=== PATIENT | female | born 2000 | race Caucasian/White ===

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

== ENCOUNTER 2023-03-08 10:50 | Emergency (ER) | payer MEDICAID, SELFPAY ==
--- NOTE | 2023-03-08 | ECG_ITS ---
Test Reason : sob Blood Pressure : / mmHG Vent. Rate : 097 BPM Atrial Rate : 097 BPM P-R Int : 130 ms QRS Dur : 068 ms QT Int : 320 ms P-R-T Axes : 080 074 050 degrees QTc Int : 406 ms Normal sinus rhythm Low voltage QRS Nonspecific T wave abnormality Abnormal ECG No previous ECGs available Referred By: Generic ED Physician Electronically Signed By:FABIAN LUCIO
--- NOTE | ~2023-03-08 | XR_ITS ---
EXAMINATION: XR CHEST CLINICAL INFORMATION: Shortness of breath. COMPARISON: Chest radiograph dated 10/30/2015. TECHNIQUE: Frontal view of the chest was obtained. FINDINGS: The lungs are clear. The cardiomediastinal silhouette is normal in size. There is no pleural effusion or pneumothorax. No acute osseous abnormality. XR/XR chest 1V IMPRESSION: No acute cardiopulmonary findings.
[2023-03-08 10:50] VITALS: BP 125/79; PULSE 98; RESP 20; TEMP 36.6; O2SAT 98; BMI 26.4
[2023-03-08 11:10] LABS: MANUAL DIFF FLAG NO
[2023-03-08 11:11] LABS: Basophils Percent Auto 0.5 % (0-2); Eosinophils Absolute Auto 0.2 X10*3/uL (0.0-0.4); Eosinophils Percent Auto 2.1 % (0-4); Hematocrit 40.3 % (37.0-47.0); Hemoglobin 13.2 g/dl (12.0-16.0); Imm Gran Abs Auto 0.04 X10*3/uL (0.00-0.03); Imm Gran Pct Auto 0.5 % (0.0-0.4); Lymphocytes Percent Auto 11.8 % (20-40); Mean Corpuscular HGB Conc 32.8 g/dl (31.0-35.0); Mean Corpuscular Hemoglobin 28.6 pg (27.0-33.0); Mean Corpuscular Volume 87.4 fL (80.0-98.0); Mean Platelet Volume 10.5 fL (9.4-12.3); Monocytes Absolute Auto 0.6 X10*3/uL (0.1-1.2); Monocytes Percent Auto 6.8 % (2-11); Neutrophils Absolute Auto 6.4 x10*3/uL (2.0-8.3); Neutrophils Percent Auto 78.3 % (45-73); Platelet Count 176 X10*3/uL (160-400); Red Blood Count 4.61 X10*6/uL (4.20-5.50); Red Cell Distribution Width 12.1 % (11.0-16.0); White Blood Count 8.1 X10*3/uL (4.8-10.8)
--- NOTE | 2023-03-08 11:18 | ED_ITS ---
HPI - SOB/Dyspnea General Chief Complaint: Dyspnea Stated Complaint: SOB Time Seen by Provider: 03/08/23 11:05 Source: patient Mode of arrival: ambulatory Limitations: no limitations History of Present Illness HPI Narrative: 22-year-old female came in for evaluation of shortness of breath. Started since yesterday and progressively getting worse, brother was sick with upper respiratory symptoms, patient started to have runny nose, subjective fever, productive cough, SOB. No history of DVTs/PE, no lower extremity swelling or tenderness. Related Data Previous Rx's Medication Instructions Recorded hyoscyamine sulfate 0.125 mg tablet 0.125 mg PO QID PRN dyspepsia #10 03/29/21 tabs loperamide 2 mg tablet 2 mg PO Q6H PRN loose stool #14 03/29/21 tabs albuterol sulfate 2.5 mg/3 mL 2.5 mg (3 mL) inhalation QID PRN 03/08/23 (0.083 %) solution for nebulization bronchospasm #75 mL azithromycin 250 mg tablet See Rx Instructions PO .COMPLEX #6 03/08/23 (Zithromax Z-Roberto) tabs prednisone 20 mg tablet 20 mg PO BID #10 tabs 03/08/23 Allergies Allergy/AdvReac Type Severity Reaction Status Date / Time ibuprofen [From MOTRIN] Allergy Unknown SHORTNESS Verified 03/08/23 10:52 OF BREATH, ANXIETY Review of Systems Review of Systems: All other systems are reviewed and are negative Constitutional: Reports as per HPI and Reports no additional constitutional complaints Eyes: Reports as per HPI and Reports no additional eye complaints Reports system reviewed and no additional complaints, except as documented Cardiovascular: Reports as per HPI and Reports no additional cardiovascular complaints Respiratory: Reports as per HPI and Reports no additional respiratory complaints Gastrointestinal: Reports as per HPI and Reports no additional gastrointestinal complaints Genitourinary: Reports no additional female genitourinary complaints Musculoskeletal: Reports no additional musculoskeletal complaints Skin/Breast: Reports system reviewed and no additional complaints, except as docu Psychiatric: Reports no additional psychiatric complaints Endocrine: Reports no additional endocrine complaints Hematologic/Lymphatic: Reports no additional hematologic/lymphatic complaints Allergic/Immunologic: Reports no additional allergic/immunologic complaints Reports system reviewed and no additional complaints, except as documented and Reports Abnormal speech present [facility] Social History Social History Smoked in Last 30 Days: No Use of substances other than those prescribed or required for medical reasons: No Advance Directives: No Advance Directives Information Provided: Yes Physical Exam Vital Signs: Vital Signs: Last Vital Signs Temp 98.0 F 03/08/23 11:24 Pulse 99 03/08/23 11:43 Resp 18 03/08/23 11:43 BP 121/77 03/08/23 11:24 Pulse Ox 97 03/08/23 11:24 O2 Del Method Room Air 03/08/23 11:24 BMI result Body Mass Index 26.4 Vital signs have been reviewed as appeared to be correct. Blood pressure normal. Heart rate normal. Respiration rate normal. Temperature normal. Oxygen saturation normal. Appearance: Alert. Oriented X3. No acute distress. Head: Normal external exam. Normocephalic. Atraumatic. No Salomon signs noted. No raccoon eyes noted Eyes: PERRLA. EOMI. Conjunctiva and sclera normal. Eyelids normal. ENT: TM's Normal. Pharynx normal. Uvula midline. Moist mucous membranes. No trismus noted. No drooling noted. No muffled voice noted. Neck: Normal inspection. Neck supple. FROM. No adenopathy. Thyroid Normal. No meningeal signs. No neck mass noted. CVS: Normal heart rate and rhythm. Heart sound normal. No murmurs noted. Pulses normal throughout. Respiratory: No respiratory distress. Painless inspiration. Breath sounds normal. Prolonged expiration with diffuse mild expiratory wheezes. Chest nontender. No accessory muscle usage noted or decreased air movement noted. Abdomen: Soft and nontender. Bowel sounds normal in all 4 quadrants. No disten tion noted. No organomegaly noted. No visible injury noted. Back: No CVA tenderness. Full range of motion noted. Skin: Skin warm and dry. Normal skin color. Normal skin turgor. No rashes/lesions/lacerations noted. Extremities: No lower extremity edema. Extremities exhibit normal range of mo tion. Extremities nontender. Neuro: Oriented X 3. Cranial nerve exam: II-XII are grossly intact No motor deficit. No sensory deficit. Reflexes normal. Course Course Course Narrative: 22-year-old female came in for evaluation of shortness of breath, physical exam is consistent with acute bronchitis. Will start the patient on Z- Roberto/prednisone/bronchodilator. Medications Administered Discontinued Medications Generic Name Dose Route Start Last Admin Trade Name Harish PRN Reason Stop Dose Admin Albuterol Sulfate 5 mg 03/08/23 11:14 03/08/23 11:41 Albuterol Sulfate (0.083%) 2.5 Mg/3 Ml Vial.Neb INHALE 03/08/23 11:15 5 mg ONCE ONE Administration Albuterol/Ipratropium 3 ml 03/08/23 11:14 03/08/23 11:41 Albuterol/Iprat 2.5/0.5mg 3 Ml Ampul.Neb INHALE 03/08/23 11:15 3 ml ONCE ONE Administration Prednisone 40 mg 03/08/23 11:14 03/08/23 11:23 Prednisone 20 Mg Tablet PO 03/08/23 11:15 40 mg ONCE ONE Administration Medical Decision Making Differential Diagnosis Differential Diagnoses: The differential diagnosis associated with the presentation includes (Bacterial pneumonia, viral pneumonia, bronchitis, COPD exacerbation, severe anemia.) Lab Data MDM Lab Attestation statement: I reviewed the patient's lab results. 03/08/23 11:05 03/08/23 11:05 Labs: Lab Results 03/08/23 03/08/23 03/08/23 Range/Units 11:05 11:05 11:23 WBC 8.1 (4.8-10.8) X10*3/uL RBC 4.61 (4.20-5.50) X10*6/uL Hgb 13.2 (12.0-16.0) g/dl Hct 40.3 (37.0-47.0) % MCV 87.4 (80.0-98.0) fL MCH 28.6 (27.0-33.0) pg MCHC 32.8 (31.0-35.0) g/dl RDW 12.1 (11.0-16.0) % Plt Count 176 (160-400) X10*3/uL MPV 10.5 (9.4-12.3) fL Immature Gran % (Auto) 0.5 H (0.0-0.4) % Neut % (Auto) 78.3 H (45-73) % Lymph % (Auto) 11.8 L (20-40) % [place] % (Auto) 6.8 (2-11) % Eos % (Auto) 2.1 (0-4) % Baso % (Auto) 0.5 (0-2) % Lymph # (Auto) 1.0 L (1.2-4.9) X10*3/uL [place] # (Auto) 0.6 (0.1-1.2) X10*3/uL Eos # (Auto) 0.2 (0.0-0.4) X10*3/uL Baso # (Auto) 0.0 (0.0-0.2) X10*3/uL Abs Immat Gran (auto) 0.04 H (0.00-0.03) X10*3/uL Absolute Neuts (auto) 6.4 (2.0-8.3) x10*3/uL Absolute Nucleated RBC 0.000 (0.0-0.012) X10*3/uL Nucleated RBC % (auto) 0.0 (0.0-0.2) /100WBC Sodium 139 (135-145) mmol/L Potassium 4.2 (3.3-5.1) mmol/L Chloride 110 H (96-108) mmol/L Carbon Dioxide 21 L (22-29) mmol/L Anion Gap 12 (12-20) BUN 7 L (9-16) mg/dL Creatinine 0.67 (0.5-1.4) mg/dL Estim Creat Clear Calc 114.3 Estimated GFR > 60 Random Glucose 138 H (60-115) mg/dL Calcium 8.4 D (8.4-10.2) mg/dL Total Bilirubin 1.3 H (0.0-1.0) mg/dL AST 14 (5-31) U/L ALT 10 (0-31) U/L Alkaline Phosphatase 67 (39-117) U/L Total Protein 6.6 (6.5-8.0) g/dL Albumin 4.0 (3.5-5.0) g/dL Influenza Type A (PCR) NEGATIVE (Negative) Influenza Type B (PCR) NEGATIVE (Negative) RSV RNA Qual (PCR) NEGATIVE (Negative) SARS-CoV-2 RNA (RT-PCR) NEGATIVE (Negative) Independent Interpretation I performed an independent interpretation of an: Plain X-Ray (No acute intrathoracic pathology for) Radiology Impression Discussion of test interpretation with radiology: I have reviewed the radiologist's reading. Discharge Plan Discharge Clinical Impression: Acute bronchitis Patient Disposition: Home, Self-Care Instructions: Acute Bronchitis (ED) Prescriptions: New prednisone 20 mg tablet 20 mg PO BID Qty: 10 0RF albuterol sulfate 2.5 mg /3 mL (0.083 %) solution for nebulization 2.5 mg inhalation QID PRN (Reason: bronchospasm) Qty: 75 0RF azithromycin [Zithromax Z-Roberto] 250 mg tablet See Rx Instructions .ROUTE .COMPLEX Qty: 6 0RF Rx Instructions: For 250 mg dose pack: take 500 mg today (day 1), then 250 mg for 4 days (days 2-5) No Action loperamide 2 mg tablet 2 mg PO Q6H PRN (Reason: loose stool) Qty: 14 0RF hyoscyamine sulfate 0.125 mg tablet 0.125 mg PO QID PRN (Reason: dyspepsia) Qty: 10 0RF Stand Alone Forms: Work/School Release
[2023-03-08] MEDS: predniSONE 20 MG TABLET 40 MG PO (11:23)
[2023-03-08 11:24] VITALS: BP 121/77; PULSE 96; RESP 24; TEMP 36.7; O2SAT 97
[2023-03-08 11:33] LABS: Alanine Aminotransferase 10 U/L (0-31); Alkaline Phosphatase 67 U/L (39-117); Anion Gap 12 (12-20); Aspartate Amino Transferase 14 U/L (5-31); Bilirubin Total 1.3 mg/dL (0.0-1.0); Blood Urea Nitrogen 7 mg/dL (9-16); Calcium 8.4 mg/dL (8.4-10.2); Carbon Dioxide 21 mmol/L (22-29); Chloride 110 mmol/L (96-108); Creatinine Clr Calc Pharmacy 114.3; Estimated Glomerular Filt Rate > 60; Glucose Random 138 mg/dL (60-115); Potassium 4.2 mmol/L (3.3-5.1); Sodium 139 mmol/L (135-145); Total Protein 6.6 g/dL (6.5-8.0)
[2023-03-08] MEDS: Albuterol Sulfate (0.083%) 2.5 MG/3 ML VIAL.NEB 5 MG INHALE (11:41)
[2023-03-08] MEDS: Albuterol/Iprat 2.5/0.5MG 3 ML AMPUL.NEB INHALE (11:41)
[2023-03-08 11:43] VITALS: PULSE 99; RESP 18; O2SAT 96
[2023-03-08 12:10] LABS: Influenza A PCR NEGATIVE (Negative); Influenza B PCR NEGATIVE (Negative); Resp Syncy Virus RNA Qual PCR NEGATIVE (Negative); SARS COV2 PCR INHOUSE NEGATIVE (Negative)
== END 2023-03-08 13:12 | disposition home or self-care (01) ==
PROVIDERS: Emergency Provider Emergency Medicine
DX: J40 Bronchitis, not specified as acute or chronic (principal); R06.02 Shortness of breath; Z20.822 Contact with and (suspected) exposure to COVID-19; Z20.828 Contact with and (suspected) exposure to other viral communicable diseases; Z79.899 Other long term (current) drug therapy
CPT/HCPCS: 0241U; 36415; 71045; 80053; 85025; 93005; 94640; 99284; 99285

== ENCOUNTER 2023-06-20 17:32 | Inpatient (IN) | payer MEDICAID, SELFPAY ==
--- NOTE | ~2023-06-20 | CT_ITS ---
EXAMINATION: CT ABDOMEN AND PELVIS WITH CONTRAST CLINICAL INFORMATION: Right lower quadrant abdominal pain, rule out appendicitis COMPARISON: None available. TECHNIQUE: Multidetector volumetric images were obtained from the superior aspect of the liver through the pubic symphysis following administration 85 mL of Omnipaque 350 intravenous contrast. Sagittal and coronal reformatted images were obtained on the technologist's workstation. Oral contrast: No This CT examination was performed using dose optimization techniques as appropriate, variously including the following: *Automated exposure control *Adjustment of mA and/or kV according to patient size (this includes techniques or standardized protocols for targeted exams where dose is matched to indication/reason for exam; i.e. extremities or head) *Use of iterative reconstruction technique DLP: 448 mGy-cm FINDINGS: LUNG BASES: Dependent bibasilar atelectasis. LIVER, GALLBLADDER, AND BILIARY TREE: The liver is normal in size, shape, and attenuation. No focal hepatic lesion or biliary ductal dilatation is present. The gallbladder is unremarkable with no evidence of radiopaque gallstones, gallbladder wall thickening, or obvious pericholecystic inflammatory changes. PANCREAS: Unremarkable. SPLEEN: Unremarkable. ADRENAL GLANDS: Unremarkable. KIDNEYS AND URETERS: Bilateral nephrograms are symmetric. No hydronephrosis or obstructing calculus identified. BLADDER: Unremarkable. GASTROINTESTINAL TRACT: No evidence of bowel obstruction or significant wall thickening. The appendix is fluid-filled and slightly dilated to 0.7 cm. There is mural enhancement of the appendix and minimal adjacent stranding, raising concern for mild/early findings of acute appendicitis in the setting of right lower quadrant pain. Trace fluid noted in the pelvis. No free air is seen. ABDOMINAL WALL: No significant hernia is appreciated. LYMPH NODES: Normal. VASCULAR: Unremarkable. PELVIC VISCERA: Unremarkable. OSSEOUS STRUCTURES: Unremarkable. CT/CT abdomen pelvis w IV con IMPRESSION: Slightly dilated, fluid-filled appendix with mural enhancement and minimal adjacent stranding, concerning for mild/early findings of acute appendicitis in the setting of right lower quadrant pain.
[2023-06-20 17:43] VITALS: BP 116/74; PULSE 103; RESP 16; TEMP 36.3; O2SAT 98; BMI 27.4
--- NOTE | 2023-06-20 17:43 | ED_ITS ---
HPI - General Adult General Chief complaint: Abdominal Pain Stated complaint: abd pain Time Seen by Provider: 06/20/23 18:42 Source: patient and family Mode of arrival: ambulatory Limitations: no limitations History of Present Illness HPI narrative: This is a 23-year-old female who has no known medical history who presents to the ER with complaints of a generalized abdominal pain and nausea today with waking. No vomiting, diarrhea, constipation, urinary symptoms, fevers or chills. Last menstrual cycle was 1 month ago. Patient has a Nexplanon. Related Data Previous Rx's Medication Instructions Recorded hyoscyamine sulfate 0.125 mg tablet 0.125 mg PO QID PRN dyspepsia #10 03/29/21 tabs loperamide 2 mg tablet 2 mg PO Q6H PRN loose stool #14 03/29/21 tabs albuterol sulfate 2.5 mg/3 mL 2.5 mg (3 mL) inhalation QID PRN 03/08/23 (0.083 %) solution for nebulization bronchospasm #75 mL azithromycin 250 mg tablet See Rx Instructions PO .COMPLEX #6 03/08/23 (Zithromax Z-Roberto) tabs prednisone 20 mg tablet 20 mg PO BID #10 tabs 03/08/23 Allergies Allergy/AdvReac Type Severity Reaction Status Date / Time ibuprofen [From MOTRIN] Allergy Unknown SHORTNESS Verified 06/20/23 17:47 OF BREATH, ANXIETY Review of Systems Review of Systems: Yes all other systems are reviewed and are negative Constitutional: Constitutional: Reports no additional constitutional complaints, Denies body ache(s), Denies chills, Denies fever(s), Denies headache(s) and Denies weakness Eyes: Eyes: Reports no additional eye complaints and Denies change in vision ENT: Reports system reviewed and no additional complaints, except as documented, Denies dizziness, Denies headache(s), Denies nasal congestion, Denies nasal discharge and Denies neck pain Cardiovascular: Cardiovascular: Reports no additional cardiovascular complaints, Denies chest pain, Denies leg edema and Denies dyspnea Respiratory: Respiratory: Reports no additional respiratory complaints, Denies cough and Denies dyspnea Gastrointestinal: Gastrointestinal: Reports no additional gastrointestinal complaints, Reports abdominal pain, Denies diarrhea, Reports nausea and Denies vomiting Genitourinary: Genitourinary: Reports no additional female genitourinary complaints and Denies urinary incontinence Musculoskeletal: Musculoskeletal: Reports no additional musculoskeletal complaints, Denies back pain, Denies arthralgias, Denies joint swelling, Denies neck pain, Denies numbness and Denies tingling Integumentary/Breasts: Skin/Breast: Reports system reviewed and no additional complaints, except as docu and Denies rash Neurologic: Reports system reviewed and no additional complaints, except as documented, Denies dizziness, Denies headache(s), Denies numbness, Denies tingling and Denies weakness PMF Past Medical History Attestation statement: The following information was validated with the patient. Source: old records reviewed and nursing notes reviewed Social History Social History Alcohol intake: never Smoked in Last 30 Days: No Use of substances other than those prescribed or required for medical reasons: No Advance Directives: No Advance Directives Information Provided: No Patient : No Physical Exam ED Vital Signs: Vital Signs - 24 hr 06/20/23 17:43 06/20/23 19:05 Temperature 97.4 F 98.9 F Pulse Rate 103 H 101 H Respiratory Rate 16 16 Blood Pressure 116/74 116/63 Pulse Oximetry 98 99 Oxygen Delivery Method Room Air Room Air BMI result Body Mass Index 27.4 Const General: cooperative, healthy appearing, comfortable and no acute distress Orientation/consciousness: patient oriented x3 Limitations: no limitations HENMT Head: Yes normal to inspection Ears: hearing grossly normal bilaterally Eyes General: appearance normal, both eyes and all related structures Pupils: Equal, round and reactive pupils present Neck Neck: Yes normal visual inspection, Yes full ROM and Yes no lymphadenopathy Chest Chest palpation & inspection: normal inspection of the chest Resp Effort & Inspection: normal respiratory effort Auscultation: clear to auscultation bilaterally Cardio Rate: regular rate Rhythm: regular rhythm Peripheral pulses: Peripheral pulses 2+ throughout GI Inspection: Yes normal to inspection Palpation (GI): Soft to palpation, Tenderness to palpation present (GI) in the RLQ; with no rebound tenderness and no guarding Auscultation: normal bowel sounds Back/Spine/Pelvis Thoracic/Lumbar Spine: thoracic and lumbar spine normal to inspection Skin General skin exam: no rashes or lesions noted Neuro General: patient oriented x3 and moves all extremities Cranial nerves: Yes Equal, round and reactive pupils present Cognition (Neuro): normal cognition Gait exam (Neuro): Normal gait present Extrem General: Yes normal to inspection, Yes no pedal edema and Yes no calf tenderness Course Course Course Narrative: This is a rapid medical exam: Additional HPI, ROS, PE not included below will be deferred to primary provider. Patient is a 23-year-old female presenting to the emergency department with generalized abdominal pain and nausea since this morning. Denies vomiting, diarrhea, constipation. Denies urinary symptoms. Reports mild back pain. Abdomen soft, mildly tender to palpation throughout, no guarding or rebound tenderness, no CVA tenderness. Took Tums around 5pm without change. Plan: UA, labs Reevaluation(s) Reevaluation #1: 8960- CT is consistent with appendicitis. At this time infection suspected. Blood cultures and lactic acid ordered. Antibiotics ordered. Call out to surgeon to discuss. Medications Administered Discontinued Medications Generic Name Dose Route Start Last Admin Trade Name Freq PRN Reason Stop Dose Admin Iohexol 100 ml 06/20/23 19:49 06/20/23 19:50 Iohexol 350 Mg/Ml 100 Ml Infus..Btl IV 06/20/23 19:50 85 ml ONCE ONE Administration Morphine Sulfate 4 mg 06/20/23 18:48 06/20/23 19:13 Morphine Sulfate 4 Mg/Ml Cartridge IVPUSH 06/20/23 18:49 4 mg ONCE ONE Administration Protocol Ondansetron HCl 4 mg 06/20/23 18:48 06/20/23 19:12 Ondansetron Hcl 4 Mg/2 Ml Vial IVPUSH 06/20/23 18:49 4 mg ONCE ONE Administration Medical Decision Making Medical Decision Making [facility] Narrative: 23-year-old female here with complaints of abdominal pain and nausea with waking today. Took Tums prior to arrival with no relief. No reports of diarrhea, constipation, vomiting, fevers, chills, urinary symptoms. On exam patient has tenderness over the right lower quadrant with no rebound or guarding. Will check labs, UA, CT Differential Diagnosis Differential Diagnoses: The differential diagnosis associated with the presentation includes appendicitis, ectopic , ovarian torsion, gastroenteritis Admission/Observation Consideration of admission/observation: Escalation of care including adm ission/observation considered CT consistent with appendicitis needing surgery consult and admission Consult Healthcare Provider Management of the patient was discussed with: Application Coordinator I spoke to Dr. St who accepted admission of patient Lab Data [facility] Lab Attestation statement: I reviewed the patient's lab results. 06/20/23 17:56 06/20/23 17:56 Labs: Lab Results 06/20/23 06/20/23 06/20/23 Range/Units 17:56 17:56 17:56 WBC 9.7 (4.8-10.8) X10*3/uL RBC 4.46 (4.20-5.50) X10*6/uL Hgb 12.9 (12.0-16.0) g/dl Hct 39.0 (37.0-47.0) % MCV 87.4 (80.0-98.0) fL MCH 28.9 (27.0-33.0) pg MCHC 33.1 (31.0-35.0) g/dl RDW 12.2 (11.0-16.0) % Plt Count 183 (160-400) X10*3/uL MPV 10.3 (9.4-12.3) fL Immature Gran % (Auto) 0.6 H (0.0-0.4) % Neut % (Auto) 73.5 H (45-73) % Lymph % (Auto) 18.0 L (20-40) % [place] % (Auto) 6.5 (2-11) % Eos % (Auto) 1.1 (0-4) % Baso % (Auto) 0.3 (0-2) % Lymph # (Auto) 1.8 (1.2-4.9) X10*3/uL [place] # (Auto) 0.6 (0.1-1.2) X10*3/uL Eos # (Auto) 0.1 (0.0-0.4) X10*3/uL Baso # (Auto) 0.0 (0.0-0.2) X10*3/uL Abs Immat Gran (auto) 0.06 H (0.00-0.03) X10*3/uL Absolute Neuts (auto) 7.1 (2.0-8.3) x10*3/uL Absolute Nucleated RBC 0.000 (0.0-0.012) X10*3/uL Nucleated RBC % (auto) 0.0 (0.0-0.2) /100WBC Sodium 138 (135-145) mmol/L Potassium 3.4 (3.3-5.1) mmol/L Chloride 105 (96-108) mmol/L Carbon Dioxide 23 (22-29) mmol/L Anion Gap 13 (12-20) BUN 10 (9-16) mg/dL Creatinine 0.62 (0.5-1.4) mg/dL Estim Creat Clear Calc 124.5 Estimated GFR > 60 Random Glucose 119 H (60-115) mg/dL Calcium 9.6 D (8.4-10.2) mg/dL Total Bilirubin 2.0 H (0.0-1.0) mg/dL AST 15 (5-31) U/L ALT 11 (0-31) U/L Alkaline Phosphatase 65 (39-117) U/L Total Protein 7.3 (6.5-8.0) g/dL Albumin 4.1 (3.5-5.0) g/dL Lipase 26 (8-78) U/L Urine Color Yellow Urine Appearance Clear Urine pH 7.0 (5.0-9.0) Ur Specific [place] 1.015 (1.005-1.025) Urine Protein Negative (Neg-Trace) mg/dL Urine Glucose (UA) Negative (Negative) mg/dL Urine Ketones Negative (Negative) mg/dL Urine Blood Negative (Negative) Urine Nitrite Negative (Negative) Ur Leukocyte Esterase Negative (Negative) Urine Test (NEGATIVE) 06/20/23 Range/Units 17:56 WBC (4.8-10.8) X10*3/uL RBC (4.20-5.50) X10*6/uL Hgb (12.0-16.0) g/dl Hct (37.0-47.0) % MCV (80.0-98.0) fL MCH (27.0-33.0) pg MCHC (31.0-35.0) g/dl RDW (11.0-16.0) % Plt Count (160-400) X10*3/uL MPV (9.4-12.3) fL Immature Gran % (Auto) (0.0-0.4) % Neut % (Auto) (45-73) % Lymph % (Auto) (20-40) % [place] % (Auto) (2-11) % Eos % (Auto) (0-4) % Baso % (Auto) (0-2) % Lymph # (Auto) (1.2-4.9) X10*3/uL [place] # (Auto) (0.1-1.2) X10*3/uL Eos # (Auto) (0.0-0.4) X10*3/uL Baso # (Auto) (0.0-0.2) X10*3/uL Abs Immat Gran (auto) (0.00-0.03) X10*3/uL Absolute Neuts (auto) (2.0-8.3) x10*3/uL Absolute Nucleated RBC (0.0-0.012) X10*3/uL Nucleated RBC % (auto) (0.0-0.2) /100WBC Sodium (135-145) mmol/L Potassium (3.3-5.1) mmol/L Chloride (96-108) mmol/L Carbon Dioxide (22-29) mmol/L Anion Gap (12-20) BUN (9-16) mg/dL Creatinine (0.5-1.4) mg/dL Estim Creat Clear Calc Estimated GFR Random Glucose (60-115) mg/dL Calcium (8.4-10.2) mg/dL Total Bilirubin (0.0-1.0) mg/dL AST (5-31) U/L ALT (0-31) U/L Alkaline Phosphatase (39-117) U/L Total Protein (6.5-8.0) g/dL Albumin (3.5-5.0) g/dL Lipase (8-78) U/L Urine Color Urine Appearance Urine pH (5.0-9.0) Ur Specific [place] (1.005-1.025) Urine Protein (Neg-Trace) mg/dL Urine Glucose (UA) (Negative) mg/dL Urine Ketones (Negative) mg/dL Urine Blood (Negative) Urine Nitrite (Negative) Ur Leukocyte Esterase (Negative) Urine Test NEGATIVE (NEGATIVE) Independent Interpretation I performed an independent interpretation of an: CT Scan Interpretation: I independently reviewed the CT scan and agree with the rad report Radiology Impression Discussion of test interpretation with radiology: I have reviewed the radiologist's reading. Radiologist Impression: [address] [address] [address] Scan Report Signed Patient: Hailey Garcia MR#: [id number] : 2000 Acct:[id number] Age/Sex: 23 / F ADM Date: 06/20/23 Loc: HO.ED Attending Dr: Ordering Physician: Carolyn English NP Date of Service: 06/20/23 Procedure(s): CT abdomen pelvis w IV con Accession Number(s): [id number] cc: Carolyn English NP~ EXAMINATION: CT ABDOMEN AND PELVIS WITH CONTRAST? CLINICAL INFORMATION: Right lower quadrant abdominal pain, rule out appendicitis? COMPARISON: None available. TECHNIQUE: Multidetector volumetric images were obtained from the superior aspect of the liver through the pubic symphysis following administration 85 mL of Omnipaque 350 intravenous contrast. Sagittal and coronal reformatted images were obtained on the technologist's workstation.? Oral contrast: No This CT examination was performed using dose optimization techniques as appropriate, variously including the following: *Automated exposure control *Adjustment of mA and/or kV according to patient size (this includes techniques or standardized protocols for targeted exams where dose is matched to indication/reason for exam; i.e. extremities or head) *Use of iterative reconstruction technique DLP: 448 mGy-cm FINDINGS: LUNG BASES: Dependent bibasilar atelectasis.? LIVER, GALLBLADDER, AND BILIARY TREE: The liver is normal in size, shape, and attenuation. No focal hepatic lesion or biliary ductal dilatation is present. The gallbladder is unremarkable with no evidence of radiopaque gallstones, gallbladder wall thickening, or obvious pericholecystic inflammatory changes. PANCREAS: Unremarkable. SPLEEN: Unremarkable. ADRENAL GLANDS: Unremarkable. KIDNEYS AND URETERS: Bilateral nephrograms are symmetric. No hydronephrosis or obstructing calculus identified. BLADDER: Unremarkable. GASTROINTESTINAL TRACT: No evidence of bowel obstruction or significant wall thickening. The appendix is fluid-filled and slightly dilated to 0.7 cm. There is mural enhancement of the appendix and minimal adjacent stranding, raising concern for mild/early findings of acute appendicitis in the setting of right lower quadrant pain. Trace fluid noted in the pelvis. No free air is seen. ABDOMINAL WALL: No significant hernia is appreciated.? LYMPH NODES: Normal. VASCULAR: Unremarkable. PELVIC VISCERA: Unremarkable.? OSSEOUS STRUCTURES: Unremarkable.? CT/CT abdomen pelvis w IV con IMPRESSION: Slightly dilated, fluid-filled appendix with mural enhancement and minimal adjacent stranding, concerning for mild/early findings of acute appendicitis in the setting of right lower quadrant pain. ? Critical Care Time Critical Care Time Critical Care Time: Yes Total Critical Care Time: 45 Attestation: discussed him with surgeon for admission for appendicitis Discharge Plan Discharge Clinical Impression: Acute appendicitis Patient Disposition: Admitted As Inpatient Prescriptions: No Action loperamide 2 mg tablet 2 mg PO Q6H PRN (Reason: loose stool) Qty: 14 0RF hyoscyamine sulfate 0.125 mg tablet 0.125 mg PO QID PRN (Reason: dyspepsia) Qty: 10 0RF prednisone 20 mg tablet 20 mg PO BID Qty: 10 0RF albuterol sulfate 2.5 mg /3 mL (0.083 %) solution for nebulization 2.5 mg inhalation QID PRN (Reason: bronchospasm) Qty: 75 0RF azithromycin [Zithromax Z-Roberto] 250 mg tablet See Rx Instructions .ROUTE .COMPLEX Qty: 6 0RF Rx Instructions: For 250 mg dose pack: take 500 mg today (day 1), then 250 mg for 4 days (days 2-5)
[2023-06-20 18:02] LABS: MANUAL DIFF FLAG NO
[2023-06-20 18:04] LABS: Appearance Urine Clear; Color Urine Yellow; Glucose Urine UA Negative (Negative); Leukocyte Esterase Urine Negative (Negative); Nitrite Urine Negative (Negative); Specific Gravity - Urine 1.015 (1.005-1.025); Urine Blood Negative (Negative); Urine Ketones Negative (Negative); Urine Protein Negative (Neg-Trace)
[2023-06-20 18:10] LABS: Basophils Percent Auto 0.3 % (0-2); Eosinophils Absolute Auto 0.1 X10*3/uL (0.0-0.4); Eosinophils Percent Auto 1.1 % (0-4); Hemoglobin 12.9 g/dl (12.0-16.0); Imm Gran Abs Auto 0.06 X10*3/uL (0.00-0.03); Imm Gran Pct Auto 0.6 % (0.0-0.4); Lymphocytes Absolute Auto 1.8 X10*3/uL (1.2-4.9); Mean Corpuscular HGB Conc 33.1 g/dl (31.0-35.0); Mean Corpuscular Hemoglobin 28.9 pg (27.0-33.0); Mean Corpuscular Volume 87.4 fL (80.0-98.0); Mean Platelet Volume 10.3 fL (9.4-12.3); Monocytes Absolute Auto 0.6 X10*3/uL (0.1-1.2); Monocytes Percent Auto 6.5 % (2-11); Neutrophils Absolute Auto 7.1 x10*3/uL (2.0-8.3); Neutrophils Percent Auto 73.5 % (45-73); Platelet Count 183 X10*3/uL (160-400); Red Blood Count 4.46 X10*6/uL (4.20-5.50); Red Cell Distribution Width 12.2 % (11.0-16.0); White Blood Count 9.7 X10*3/uL (4.8-10.8)
[2023-06-20 18:29] LABS: Alanine Aminotransferase 11 U/L (0-31); Albumin Level 4.1 g/dL (3.5-5.0); Alkaline Phosphatase 65 U/L (39-117); Anion Gap 13 (12-20); Aspartate Amino Transferase 15 U/L (5-31); Blood Urea Nitrogen 10 mg/dL (9-16); Calcium 9.6 mg/dL (8.4-10.2); Carbon Dioxide 23 mmol/L (22-29); Chloride 105 mmol/L (96-108); Creatinine Clr Calc Pharmacy 124.5; Estimated Glomerular Filt Rate > 60; Glucose Random 119 mg/dL (60-115); Lipase 26 U/L (8-78); Potassium 3.4 mmol/L (3.3-5.1); Sodium 138 mmol/L (135-145); Total Protein 7.3 g/dL (6.5-8.0)
[2023-06-20 19:05] VITALS: BP 116/63; PULSE 101; RESP 16; TEMP 37.2; O2SAT 99
[2023-06-20] MEDS: ondansetron HCL 4 MG/2 ML VIAL IVPUSH (19:12)
[2023-06-20] MEDS: Morphine Sulfate 4 MG/ML CARTRIDGE IVPUSH (19:13)
[2023-06-20 19:30] LABS: UPreg QC Valid YES; Urine Pregnancy NEGATIVE (NEGATIVE)
--- NOTE | 2023-06-20 19:47 | PC.NURSE ---
Pt in CT
[2023-06-20] MEDS: iohexoL 350 MG/ML 100 ML INFUS..BTL IV (19:50)
[2023-06-20] MEDS: HYDROmorphone HCl 1 MG/ML SYRINGE 0.5 MG IVPUSH (23:21)
[2023-06-20] MEDS: 0.9 % Sodium Chloride Flush 3 ML SYRINGE IVFLUSH (23:22)
[2023-06-20] MEDS: Piperacillin Sodium/Tazobactam 4.5 GM in 0.9 % Sodium Chloride 100 ML IV (23:22)
[2023-06-20] MEDS: Dextrose 5 % and 0.45 % NaCl 1,000 ML 100 ML IVCONT (23:22)
[2023-06-21] VITALS (10 sets, daily range): BP systolic 110–141; BP diastolic 56–84; PULSE 85–107; RESP 16–19; TEMP 36.1–36.9; O2SAT 95–99
[2023-06-21] MEDS: ondansetron HCL 4 MG/2 ML VIAL IVPUSH (03:01)
--- NOTE | 2023-06-21 07:22 | PHA.MEDREC ---
Pharmacy Consult ? Medication Reconciliation Pharmacy has reviewed the medication reconciliation done by RN.
[2023-06-21] MEDS: Dextrose 5 % and 0.45 % NaCl 1,000 ML 100 ML IVCONT (08:26)
--- NOTE | 2023-06-21 09:28 | MHC.CM.PN ---
Addendum entered by Kenyetta Morales 06/21/23 14:11: PT WILL DC HOME TODAY, NO SERVICES ORDERED Original Note: PT REPORTS SHE LIVES WITH HER S/O WHO IS AT BEDSIDE SHE SAYS SHE IS INDEPENDENT WITH CARE AND DENIES USING DME OR SERVICES OF ANY KIND PT REPORTS SHE GOES TO [facility] FOR PRIMARY CARE, BUT IS UNSURE OF HER PROVIDERS NAME SHE DOES NOT HAVE A HCP AND DECLINES TO COMPLETE ONE TODAY, INFO AND DOCUMENT WERE PROVIDED DCP: HOME NO SERVICES VIA PRIVATE TRANSPORT
--- NOTE | 2023-06-21 11:59 | HO.ANESPROP2 ---
HPI - Anesthesia Eval Consult details Narrative: Acute appendicitis PMFSH Active Problems Active Problems: All Active Problems (Updated 06/20/23 @ 22:48 by Carolyn Wan NP) Acute appendicitis (Acute) Family History Family history of problems with anesthesia: No Surgical History History of Problems with Anesthesia: No Social History Social History Household Members: Significant Other and Family Housing: House Do you presently have visiting nurse or other home services: No Alcohol intake: never Patient Tobacco Use Status: Never used Tobacco Smoked in Last 30 Days: No Use of substances other than those prescribed or required for medical reasons: No Currently Displaying Signs/Symptoms of Drug Intoxication Withdrawal: No Have you been hit, kicked, punched, or otherwise hurt by someone within the past year? If so, by whom?: No Do you feel safe in your current relationship?: Yes Is there a partner from a previous relationship who is making you feel unsafe now?: No Are you made to feel afraid or neglected: No Advance Directives: No Advance Directives Information Provided: No Do you have thoughts of harming others: None Do you have a plan to hurt others: No Plan Recently lost weight without trying: No Eating poorly because of decreased appetite: No Nutrition Risks: No Nutritional Risk Patient : No : No Poor oral hygiene: No service: No Meds Allergies Allergy/AdvReac Type Severity Reaction Status Date / Time ibuprofen [From MOTRIN] Allergy Unknown SHORTNESS Verified 06/20/23 17:47 OF BREATH, ANXIETY Active Medications: Current Medications Acetaminophen (Acetaminophen 325 Mg Tablet) 650 mg PO Q6H PRN PRN Reason: Pain, Mild (Pain Scale 1-3) Hydromorphone HCl (Hydromorphone Hcl 1 Mg/Ml Syringe) 0.5 mg IVPUSH Q4H PRN; Protocol PRN Reason: Pain, Severe (Pain Scale 7-10) Last Admin: 06/20/23 23:21 Dose: 0.5 mg Dextrose/Sodium Chloride (D51/2ns) 1,000 mls @ 100 mls/hr IVCONT .Q10H FABY Last Admin: 06/21/23 08:26 Dose: 100 mls/hr Ondansetron HCl (Ondansetron Hcl 4 Mg/2 Ml Vial) 4 mg IVPUSH Q8H PRN PRN Reason: Nausea and Vomiting Last Admin: 06/21/23 03:01 Dose: 4 mg Pharmacy Consult (Consult Rx Perform Med Rec) 1 each MISCELLANE ONCE PRN PRN Reason: Consult order Sodium Chloride (0.9 % Sodium Chloride Flush 3 Ml Syringe) 3 ml IVFLUSH QSHIFT FABY Last Admin: 06/21/23 08:23 Dose: Not Given Zolpidem Tartrate (Zolpidem Tartrate 5 Mg Tablet) 5 mg PO BEDTIME PRN PRN Reason: Insomnia Exam Exam Date and Time: June 21, 2023 1159 Height,Weight and Vital Signs: Height 5 ft 1 in Weight 65.771 kg Last Vital Signs Temp 97.1 F 06/21/23 07:27 Pulse 88 06/21/23 07:27 Resp 18 06/21/23 07:27 BP 110/56 L 06/21/23 07:27 Pulse Ox 97 06/21/23 07:27 O2 Del Method Room Air 06/21/23 07:27 Pertinent Lab Results Pertinent Lab Results: Laboratory Tests 06/20/23 06/20/23 06/20/23 17:56 17:56 17:56 WBC 9.7 RBC 4.46 Hgb 12.9 Hct 39.0 MCV 87.4 MCH 28.9 MCHC 33.1 RDW 12.2 Plt Count 183 MPV 10.3 Immature Gran % (Auto) 0.6 H Neut % (Auto) 73.5 H Lymph % (Auto) 18.0 L [place] % (Auto) 6.5 Eos % (Auto) 1.1 Baso % (Auto) 0.3 Lymph # (Auto) 1.8 [place] # (Auto) 0.6 Eos # (Auto) 0.1 Baso # (Auto) 0.0 Abs Immat Gran (auto) 0.06 H Absolute Neuts (auto) 7.1 Absolute Nucleated RBC 0.000 Nucleated RBC % (auto) 0.0 Sodium 138 Potassium 3.4 Chloride 105 Carbon Dioxide 23 Anion Gap 13 BUN 10 Creatinine 0.62 Estim Creat Clear Calc 124.5 Estimated GFR > 60 Random Glucose 119 H Lactic Acid Calcium 9.6 D Total Bilirubin 2.0 H AST 15 ALT 11 Alkaline Phosphatase 65 Total Protein 7.3 Albumin 4.1 Lipase 26 Urine Color Yellow Urine Appearance Clear Urine pH 7.0 Ur Specific [place] 1.015 Urine Protein Negative Urine Glucose (UA) Negative Urine Ketones Negative Urine Blood Negative Urine Nitrite Negative Ur Leukocyte Esterase Negative Urine Test 06/20/23 06/20/23 17:56 23:27 WBC RBC Hgb Hct MCV MCH MCHC RDW Plt Count MPV Immature Gran % (Auto) Neut % (Auto) Lymph % (Auto) [place] % (Auto) Eos % (Auto) Baso % (Auto) Lymph # (Auto) [place] # (Auto) Eos # (Auto) Baso # (Auto) Abs Immat Gran (auto) Absolute Neuts (auto) Absolute Nucleated RBC Nucleated RBC % (auto) Sodium Potassium Chloride Carbon Dioxide Anion Gap BUN Creatinine Estim Creat Clear Calc Estimated GFR Random Glucose Lactic Acid 1.0 Calcium Total Bilirubin AST ALT Alkaline Phosphatase Total Protein Albumin Lipase Urine Color Urine Appearance Urine pH Ur Specific [place] Urine Protein Urine Glucose (UA) Urine Ketones Urine Blood Urine Nitrite Ur Leukocyte Esterase Urine Test NEGATIVE Airway Mallampati Class: I TM Dist: >3cm Neck ROM: Full Loose/Missing/Broken Teeth: No Heart: RRR Lungs: CTA Assessment and Plan Assessment Anesthesia Assessment: Anesthesia Plan Discussed and Chart Reviewed Final Anesthetic Review Family History of Problems with Anesthesia: No History of Problems with Anesthesia: No NPO: Yes ASA Class: I and Emergency Final Preanesthetic Review: No Changes in Pt Med Stat, Meds/Allgs Chart Reviewed, Consent Obtained/Reviewed and Anes Risks/Benef Reviewed Patient Risk: Low Procedure Risk: Intermediate Anesthetic Plan Anesthetic Plan: GA Disposition: Standard PACU
--- NOTE | 2023-06-21 12:33 | P.HPGS_ITS ---
History of Present Illness History of Present Illness Date of Service: 06/21/23 Chief complaint: abdominal pain Narrative: Hailey Garcia is a 23 year old female who presents with approximate 1 day history of right lower quadrant pain of increasing severity. Because of progression of symptoms, patient presents emergency department for further evaluation. She has never had symptoms before. Very healthy patient otherwise. Chart was reviewed and patient evaluated. CT scan consistent with early appendicitis. [facility] Social History Social History Household Members: Significant Other and Family Housing: House Do you presently have visiting nurse or other home services: No Alcohol intake: never Patient Tobacco Use Status: Never used Tobacco Smoked in Last 30 Days: No Use of substances other than those prescribed or required for medical reasons: No Currently Displaying Signs/Symptoms of Drug Intoxication Withdrawal: No Have you been hit, kicked, punched, or otherwise hurt by someone within the past year? If so, by whom?: No Do you feel safe in your current relationship?: Yes Is there a partner from a previous relationship who is making you feel unsafe now?: No Are you made to feel afraid or neglected: No Advance Directives: No Advance Directives Information Provided: No Do you have thoughts of harming others: None Do you have a plan to hurt others: No Plan Recently lost weight without trying: No Eating poorly because of decreased appetite: No Nutrition Risks: No Nutritional Risk Patient : No : No Poor oral hygiene: No service: No Meds Allergies Allergy/AdvReac Type Severity Reaction Status Date / Time ibuprofen [From MOTRIN] Allergy Unknown SHORTNESS Verified 06/20/23 17:47 OF BREATH, ANXIETY Active Medications: Current Medications Acetaminophen (Acetaminophen 325 Mg Tablet) 650 mg PO Q6H PRN PRN Reason: Pain, Mild (Pain Scale 1-3) Albuterol Sulfate (Albuterol Sulfate (0.083%) 2.5 Mg/3 Ml Vial.Neb) 2.5 mg INHALE ONCE PRN PRN Reason: Wheezing Fentanyl (Fentanyl Citrate/Pf 100 Mcg/2 Ml Vial) 50 mcg IVPUSH Q5M PRN; Protocol PRN Reason: Pain, Severe (Pain Scale 7-10) Hydromorphone HCl (Hydromorphone Hcl 1 Mg/Ml Syringe) 0.5 mg IVPUSH Q4H PRN; Protocol PRN Reason: Pain, Severe (Pain Scale 7-10) Last Admin: 06/20/23 23:21 Dose: 0.5 mg Hydromorphone HCl (Hydromorphone Hcl 0.5 Mg/0.5 Ml Syringe) 0.5 mg IVPUSH Q5M PRN; Protocol PRN Reason: Pain, Severe (Pain Scale 7-10) Dextrose/Sodium Chloride (D51/2ns) 1,000 mls @ 100 mls/hr IVCONT .Q10H [facility] Last Admin: 06/21/23 08:26 Dose: 100 mls/hr Promethazine HCl 12.5 mg/ (Sodium Chloride) 50.5 mls @ 202 mls/hr IV ONCE PRN PRN Reason: Nausea and Vomiting Ondansetron HCl (Ondansetron Hcl 4 Mg/2 Ml Vial) 4 mg IVPUSH Q8H PRN PRN Reason: Nausea and Vomiting Last Admin: 06/21/23 03:01 Dose: 4 mg Ondansetron HCl (Ondansetron Hcl 4 Mg/2 Ml Vial) 4 mg IVPUSH ONCE PRN PRN Reason: Nausea and Vomiting Pharmacy Consult (Consult Rx Perform Med Rec) 1 each MISCELLANE ONCE PRN PRN Reason: Consult order Sodium Chloride (0.9 % Sodium Chloride Flush 3 Ml Syringe) 3 ml IVFLUSH QSHIFT [facility] Last Admin: 06/21/23 08:23 Dose: Not Given Zolpidem Tartrate (Zolpidem Tartrate 5 Mg Tablet) 5 mg PO BEDTIME PRN PRN Reason: Insomnia Physical Exam Vital Signs: Vital Signs: Last Vital Signs Temp 97.1 F 06/21/23 07:27 Pulse 88 06/21/23 07:27 Resp 18 06/21/23 07:27 BP 110/56 L 06/21/23 07:27 Pulse Ox 97 06/21/23 07:27 O2 Del Method Room Air 06/21/23 07:27 BMI result Body Mass Index 27.4 Chest: Other: Chest breath sounds bilaterally, HS 1 in 2 GI: Other: Localized right lower quadrant tenderness. Abdomen otherwise soft. Results Results Labs: Short CBC 06/20/23 Range/Units 17:56 WBC 9.7 (4.8-10.8) X10*3/uL Hgb 12.9 (12.0-16.0) g/dl Hct 39.0 (37.0-47.0) % Plt Count 183 (160-400) X10*3/uL BMP 06/20/23 17:56 Sodium 138 Potassium 3.4 Chloride 105 Carbon Dioxide 23 BUN 10 Creatinine 0.62 Calcium 9.6 D Liver Function 06/20/23 Range/Units 17:56 Total Bilirubin 2.0 H (0.0-1.0) mg/dL AST 15 (5-31) U/L ALT 11 (0-31) U/L Alkaline Phosphatase 65 (39-117) U/L Albumin 4.1 (3.5-5.0) g/dL Urine 06/20/23 06/20/23 Range/Units 17:56 17:56 Urine Color Yellow Urine Appearance Clear Urine pH 7.0 (5.0-9.0) Ur Specific [place] 1.015 (1.005-1.025) Urine Protein Negative (Neg-Trace) mg/dL Urine Glucose (UA) Negative (Negative) mg/dL Urine Test NEGATIVE (NEGATIVE) Assessment and Plan (1) Acute appendicitis: Status: Acute Plan Risks, benefits, alternatives of laparoscopic possible open appendectomy were reviewed with the patient and included but not limited to bleeding, infection, numbness, pain, scarring, bowel or bladder injury or leak and the patient wishes to proceed. All questions were answered. Arrangements were made for this for today. Time Spent With Patient Time: Total time managing care of this patient today ____ minutes. Quality Stroke Does the patient have a stroke diagnosis?: No VTE Prior VTE?: No VTE Risk Level:: Surgical - low VTE Device Contraindication: Treatment Not Indicated VTE Drug Contraindication: Treatment Not Indicated Procedures Date of Service Date of Service: 06/21/23
--- NOTE | 2023-06-21 13:34 | P.OP_ITS ---
Operative Note Operative Note Date of Service: 06/21/23 Narrative: Preoperative diagnosis: [] Acute appendicitis Postop diagnosis: [] Same Procedure [] laparoscopic appendectomy Surgeon: [] [employer]iel Electrical [employer] Technologist: [] Type of Anesthesia: [] MAC Indication for surgery: [] Edematous inflamed appendix. No gross evidence of perforation. Findings: [] Patient brought to the operating room, placed on operative table in supine position, after adequate level of general anesthesia was induced, and under sterile technique a Saxena catheter placed, the patient's abdomen was prepped and draped in usual sterile fashion. Using a supraumbilical curvilinear incision, Kemp technique was used to insufflate the abdominal cavity to 15 mm of CO2. Lower midline and suprapubic ports were placed under direct laparoscopic view, and the patient placed in Trendelenburg position, and tilted to the left. Findings were as noted above. The appendix was grasped and brought onto the field. It's mesentery was sequentially taken down with double firing of ligature device. Appendix then transected the cecal base using endoscopic JENNY stapler. Specimen was placed in an Endo-Catch bag, and retrieved through the umbilical port. Abdominal cavity was copiously irrigated, and secured hemostasis. All ports were removed under direct laparoscopic view. Wounds were closed in the following manner; umbilical wound had its fascia reapproximated using interrupted 0 Vicryl sutures. Skin wounds were closed using subcuticular 4-0 Vicryl sutures followed by Steri-Strips and sterile dressings. Wounds were infiltrated 0.5% Marcaine at completion. Sponge, needle, instrument counts reported to be correct. Patient tolerated the procedure well and emerged anesthesia stable condition. EBL minimal
[2023-06-21] MEDS: Acetaminophen 1,000 MG/100 ML PIGGYBACK 400 MG IV (13:45)
[2023-06-21] MEDS: HYDROmorphone HCl 1 MG/ML SYRINGE 0.5 MG IVPUSH (14:38)
[2023-06-21] MEDS: Metoclopramide HCl 10 MG/2 ML VIAL IVPUSH (15:31)
--- NOTE | 2023-06-22 08:55 | P.DS_ITS ---
DS: Providers Provider Date of Service: 06/21/23 Date of admission: 06/20/23 22:43 Primary care physician: [facility] DS: Diagnosis Discharge Diagnosis (1) Acute appendicitis: Start date: 06/20/23 Status: Acute DS: Summary Hospital Course Hospital Course: Patient is a 23-year-old female presented here with progressive worsening right lower quadrant pain. Exam was most noteworthy for right lower quadrant tenderne ss. Workup including CT scan demonstrated findings consistent with early appendicitis. This all happened on 06/20/2023. Patient was admitted, placed NPO with IV hydration IV antibiotics. On 06/21/2023, patient underwent uneventful laparoscopic appendectomy. For specific intraoperative findings, please refer to operative note. Patient's postoperative course unremarkable. Patient is stable. She is tolerating a diet. Patient is ambulating with minimal assistance. Abdomen soft. Wound clean dry and intact. Status at Discharge Overall status at discharge: patient is back to baseline Time Spent with Patient Time attestation: Total time managing care of this patient today ____ minutes. Discharge coordination time: Less than 30 minutes Quality: Safe Use of Opioids Does Pt have an Active Cancer Diagnosis on the Problem List?: No Quality: Stroke Does the patient have a stroke diagnosis?: No Physical Exam Vital Signs: Vital Signs: Last Vital Signs Temp 97 F 06/21/23 15:13 Pulse 88 06/21/23 15:13 Resp 18 06/21/23 15:13 BP 120/65 06/21/23 15:13 Pulse Ox 98 06/21/23 15:13 O2 Del Method Room Air 06/21/23 15:13 O2 Flow Rate 6 06/21/23 13:43 BMI result Body Mass Index 27.4 GI: Other: Abdomen soft. Wound clean dry and intact. DS: Data Data Completed and Pending Completed studies during hospitalization [Text1]: Procedures Resection of Appendix, Percutaneous Endoscopic Approach (06/20/23) Pending studies at discharge: Pending at discharge 06/21/23 13:43 Surgical [PTH] Routine Labs on day of discharge: Preliminary micro results at discharge 06/20/23 23:21 Blood Culture - Preliminary Blood - Venous No growth after 24 hours. 06/20/23 23:21 Blood Culture - Preliminary Blood - Venous No growth after 24 hours. Discharge Plan Discharge Anticipated Discharge Date/Time: 06/21/23 18:38 Patient Disposition: Home, Self-Care Discharge Diagnosis: Acute appendicitis Referrals: [place] [Primary Care Provider] - 1 Week Discharge Medications: New hydrocodone-acetaminophen 5-325 mg tablet 1 tab PO Q4-6H PRN (Reason: pain) Qty: 30 0RF Rx Instructions: Partial Fill upon patient request. Discontinued albuterol sulfate 2.5 mg /3 mL (0.083 %) solution for nebulization 2.5 mg inhalation QID PRN (Reason: bronchospasm) Qty: 75 0RF Discharge Orders: Discharge Order (Routine); Ordered 06/21/23 Ordered By: Praneeth St Diet: Advance to usual diet Activity on Discharge: No heavy lifting Stand Alone Forms: Patient Portal Discharge page Activity Restrictions/Additional Instructions: Ice to wound 20 minutes several times today and tomorrow. May shower in 2 days. Remove outside dressing only. Leave Steri-Strips intact. No strenuous activities Care Plan Goals: [facility] Concerns: None Plan of Treatment: For discharge instructions Assessment: Stable Discharge Date/Time: 06/21/23 16:28
== END 2023-06-21 16:28 | disposition home or self-care (01) | DRG 234 ==
LOC: HO.ED 22:48 → HO.EDOVER 22:50 → HO.S3 23:22
PROVIDERS: Nurse Practitioner Family; Registered Nurse Emergency; Admitting Provider Surgery; Emergency Provider Emergency Medicine Emergency Medical Services; Visit Provider Surgery
PROC: 0DTJ4ZZ Resection of Appendix, Percutaneous Endoscopic Approach (ICD-10-PCS; CPT 44970; principal; 2023-06-21 12:00)
DX: K35.80 Unspecified acute appendicitis (principal)
CPT/HCPCS: 44970; 36415; 74177; 80053; 81003; 81025; 83605; 83690; 85025; 87040; 88304; 99284; J0131; J1100; J1170; J2250; J2270; J2405; J2543; J2765; J2795; J3010; Q9967

== ENCOUNTER → 2023-06-20 22:43 | Outpatient (BNV) | payer MEDICAID, SELFPAY | PROVIDERS: Admitting Provider Surgery; Emergency Provider Emergency Medicine Emergency Medical Services; Visit Provider Surgery | DX: K35.80 Unspecified acute appendicitis (principal) | CPT/HCPCS: 44970; 99024; 99223 ==

== ENCOUNTER 2023-06-30 10:05 | Outpatient (AMB) | payer MEDICAID, SELFPAY ==
--- NOTE | 2023-06-30 10:14 | MHC.OFFVIS ---
Intake Vital Signs 06/30/23 10:18 Height 5 ft 1 in Weight 141 lb 4 oz BMI 26.7 BP 117/67 Blood Pressure Location Lt brachial Position Sitting Pulse 80 Intake Visit Reasons: S/P appendectomy Intake Note: Patient is seen in office for post op assessment post appendectomy. Patient c/o: denies any concerns, healing as expected. 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 She is doing well. She has time diet. She is having normal bowel habits. She is slowly but steadily increasing her activity level. She has minimal incisional discomfort. [facility] Surgical History History of appendectomy (06/21/23) Social History Household Members: Significant Other and Family Housing: House Do you presently have visiting nurse or other home services: No Alcohol intake: never Patient Tobacco Use Status: Never used Tobacco service: No Physical Exam Vital Signs: Last Vital Signs Pulse 80 06/30/23 10:18 BP 117/67 06/30/23 10:18 BMI result Body Mass Index 26.7 GI Other: Abdomen soft. All wounds clean dry and intact. Assessment & Plan Assessment & Plan (1) Status post appendectomy: Code(s): Z90.49 - Acquired absence of other specified parts of digestive tract Plan Patient has been given local instructions. She will be given note for work started on the 13 of July. Two weeks light duty when she recommenced his employment. Patient will otherwise follow-up p.r.n. pain Coding Level of Care Code Global (58600) Diagnoses Status post appendectomy Z90.49
[2023-06-30 10:18] VITALS: BP 117/67; PULSE 80; BMI 26.7
== END 2023-06-30 10:36 | disposition home or self-care (01) ==
PROVIDERS: Visit Provider Surgery
DX: Z90.49 Acquired absence of other specified parts of digestive tract (principal)
CPT/HCPCS: 99024

== ENCOUNTER → 2023-06-30 10:05 | Outpatient (BNVA) | payer MEDICAID, SELFPAY | PROVIDERS: Visit Provider Surgery ==

== ENCOUNTER 2023-07-08 04:13 | Emergency (ER) | payer MEDICAID, SELFPAY ==
--- NOTE | ~2023-07-08 | CT_ITS ---
EXAMINATION: CT ABDOMEN AND PELVIS WITH CONTRAST CLINICAL INFORMATION: Periumbilical pain status post appendectomy on 06/22/2023. COMPARISON: CT scan of the abdomen and pelvis dated 06/20/2023 TECHNIQUE: Multidetector volumetric images were obtained from the superior aspect of the liver through the pubic symphysis following administration 85 mL of Omnipaque 350 intravenous contrast. Sagittal and coronal reformatted images were obtained on the technologist's workstation. Oral contrast: No This CT examination was performed using dose optimization techniques as appropriate, variously including the following: *Automated exposure control *Adjustment of mA and/or kV according to patient size (this includes techniques or standardized protocols for targeted exams where dose is matched to indication/reason for exam; i.e. extremities or head) *Use of iterative reconstruction technique DLP: 469 mGy-cm FINDINGS: LUNG BASES: The visualized lung bases are unremarkable. LIVER, GALLBLADDER, AND BILIARY TREE: Unremarkable. PANCREAS: Unremarkable. SPLEEN: Unremarkable. ADRENAL GLANDS: Unremarkable. KIDNEYS AND URETERS: The kidneys are normal in size, shape, and attenuation. No hydronephrosis, hydroureter, or calculi seen. No perinephric stranding. BLADDER: Unremarkable. GASTROINTESTINAL TRACT: The stomach and small bowel are unremarkable. Surgical clips are seen at the base of the cecum without surrounding abnormality. The base of the cecum is unremarkable. Trace fluid in the right lower quadrant. The colon and rectum are unremarkable. ABDOMINAL WALL: No significant hernia is appreciated. LYMPH NODES: No lymphadenopathy. VASCULAR: Unremarkable. PELVIC VISCERA: Trace free fluid in the cul-de-sac. OSSEOUS STRUCTURES: Unremarkable. CT/CT abdomen pelvis w IV con IMPRESSION: 1. Post surgical changes status post appendectomy without significant associated abnormality. Trace right lower quadrant is likely residual postsurgical. Fluid in the pelvis could be postsurgical as well or physiologic. No other significant abnormality.
[2023-07-08 04:16] VITALS: BP 122/72; PULSE 101; RESP 18; TEMP 36.6; O2SAT 98; BMI 26.8
[2023-07-08 04:34] LABS: Appearance Urine Turbid; Color Urine Yellow; Glucose Urine UA Negative (Negative); Leukocyte Esterase Urine Negative (Negative); Nitrite Urine Negative (Negative); PH 8.5 (5.0-9.0); Urine Blood Negative (Negative); Urine Ketones 40 mg/dL (Negative); Urine Protein Negative (Neg-Trace)
--- NOTE | 2023-07-08 04:43 | PC.NURSE ---
Assumed care of pt. Pt sitting on stretcher, intermittently tearful, endorsing mid-abdominal pain. Labs obtained IV started.Pending provider evaluation.
[2023-07-08 04:45] LABS: MANUAL DIFF FLAG NO
[2023-07-08 04:46] LABS: Basophils Percent Auto 0.4 % (0-2); Eosinophils Absolute Auto 0.1 X10*3/uL (0.0-0.4); Eosinophils Percent Auto 0.9 % (0-4); Hematocrit 39.6 % (37.0-47.0); Hemoglobin 13.4 g/dl (12.0-16.0); Imm Gran Abs Auto 0.05 X10*3/uL (0.00-0.03); Imm Gran Pct Auto 0.6 % (0.0-0.4); Lymphocytes Percent Auto 25.5 % (20-40); Mean Corpuscular HGB Conc 33.8 g/dl (31.0-35.0); Mean Corpuscular Hemoglobin 28.9 pg (27.0-33.0); Mean Corpuscular Volume 85.3 fL (80.0-98.0); Mean Platelet Volume 10.1 fL (9.4-12.3); Monocytes Absolute Auto 0.4 X10*3/uL (0.1-1.2); Monocytes Percent Auto 5.6 % (2-11); Neutrophils Absolute Auto 5.2 x10*3/uL (2.0-8.3); Platelet Count 241 X10*3/uL (160-400); Red Blood Count 4.64 X10*6/uL (4.20-5.50); Red Cell Distribution Width 11.9 % (11.0-16.0); White Blood Count 7.8 X10*3/uL (4.8-10.8)
[2023-07-08 05:03] LABS: Alanine Aminotransferase 11 U/L (0-31); Albumin Level 4.3 g/dL (3.5-5.0); Alkaline Phosphatase 62 U/L (39-117); Anion Gap 15 (12-20); Aspartate Amino Transferase 15 U/L (5-31); Bilirubin Direct 0.4 mg/dL (0.0-0.5); Bilirubin Total 1.5 mg/dL (0.0-1.0); Blood Urea Nitrogen 10 mg/dL (9-16); Calcium 9.8 mg/dL (8.4-10.2); Carbon Dioxide 22 mmol/L (22-29); Chloride 104 mmol/L (96-108); Creatinine Clr Calc Pharmacy 99.3; Estimated Glomerular Filt Rate > 60; Glucose Random 127 mg/dL (60-115); Lipase 18 U/L (8-78); Potassium 3.1 mmol/L (3.3-5.1); Sodium 138 mmol/L (135-145); Total Protein 7.7 g/dL (6.5-8.0)
--- NOTE | 2023-07-08 07:02 | ED_ITS ---
HPI - Abdominal Pain General Chief Complaint: Abdominal Pain Stated Complaint: Abdominal pain Time Seen by Provider: 07/08/23 06:57 Source: patient Mode of arrival: ambulatory Limitations: no limitations History of Present Illness HPI narrative: 23 yo female with no sig PMH other than recent lap appendectomy on 06/[address] says she did really well until last night after eating Tostadas now with epigastric pain and nausea. Had a normal BM. no vomiting. She tried motrin, pepto bismol and vicodin without relief. She states this is the first time this has happened since surgery. She is in a lot of pain right now. She has never had gallstones, pancreatitis or gastritis before. MD elicited complaint: abdominal pain Pertinent past history: other (lap appy 06/22) Onset (ago): hour(s) (10pm) Pain Consistency: constant Location: epigastric and periumbilical Severity: severe Quality: stabbing Radiation: none Migration to: no migration Exacerbating factors: eating Relieving factors: nothing Context: recent surgery/procedure Associated symptoms: nausea Related Data Previous Rx's Medication Instructions Recorded hydrocodone 5 mg-acetaminophen 325 1 tab PO Q4-6H PRN pain #30 tabs 06/21/23 mg tablet famotidine 20 mg tablet (Pepcid) 20 mg PO BID #60 tabs 07/08/23 ondansetron 4 mg disintegrating 4 mg PO Q8H PRN nausea and 07/08/23 tablet vomiting #20 tabs Allergies Allergy/AdvReac Type Severity Reaction Status Date / Time ibuprofen [From MOTRIN] Allergy Unknown SHORTNESS Verified 06/30/23 10:14 OF BREATH, ANXIETY Review of Systems Review of Systems Constitutional : No Weight loss, No Fever, No Chills Cardiovascular : No Chest Pain, No SOB, NoEdema Respiratory : No Cough, No Sputum, No Wheezing Gastrointestinal : Positive Nausea, no Vomiting, no Diarrhea, positive abdominal Pain, No Hematochezia, No Melena Genitourinary : No Dysuria, No Urinary Frequency, No Hematuria, No Urgency Musculoskeletal : No joint pain, No Myalgias, No Joint Swelling Skin : No Skin Lesions, No rash Neuro : No Weakness, No Numbness, No Dizziness, No Headache Psych : No Anxiety/Panic, No Depression All other systems reviewed and are negative. ON LICENSE OF [facility] Past Medical History Attestation statement: The following information was validated with the patient. Surgical History History of appendectomy (06/21/23) Social History Social History Household Members: Significant Other and Family Housing: House Do you presently have visiting nurse or other home services: No Alcohol intake: never Patient Tobacco Use Status: Never used Tobacco Smoked in Last 30 Days: No Use of substances other than those prescribed or required for medical reasons: No Advance Directives: No Advance Directives Information Provided: Yes Patient : No service: No Physical Exam ED Vital Signs: Vital Signs - 24 hr 07/08/23 04:16 07/08/23 07:06 07/08/23 07:28 Temperature 97.9 F 98.2 F Pulse Rate 101 H 98 109 H Respiratory Rate 18 18 Blood Pressure 122/72 137/68 123/71 Pulse Oximetry 98 100 98 Oxygen Delivery Method Room Air Room Air Room Air 07/08/23 08:14 Temperature Pulse Rate 88 Respiratory Rate 19 Blood Pressure 122/71 Pulse Oximetry 97 Oxygen Delivery Method BMI result Body Mass Index 26.8 Appearance: Alert. Oriented X3. No acute distress. anxious and tearful Eyes: Pupils equal, round and reactive to light. ENT: Pharynx normal. Neck: Normal inspection. Neck supple. CVS: Normal heart rate and rhythm. Pulses normal. Respiratory: No respiratory distress. Breath sounds normal. Abdomen: Soft and moderate epigastric ttp but no distention and no rebound Skin: Skin warm and dry. Normal skin color. Normal skin turgor. Extremities: No lower extremity edema. No calf ttp Neuro: Oriented X 3. No motor deficit. No sensory deficit. Course Course Course Narrative: feels much better after IV morphine, tolerating PO, stable for DC Medical Decision Making Medical Decision Making MDM Narrative: 23 yo female with PMH of recent lap appendectomy here with c/o epigastric pain + nausea had BM and is passing flatus. Her incisions look well healed she has done great post op and her pain started in upper abdomen after eating Tostadas. At this time could be gastritis, pancreatitis, biliary colic. At this time labs, IV morphine for pain, CT scan for pancreatitis, biliary colic, perforated ulcer ordered though low on differential. Differential Diagnosis Differential Diagnoses: The differential diagnosis associated with the presentation includes gastritis, biliary colic, SBO, pancreatitis Admission/Observation Consideration of admission/observation: Escalation of care including admission/observation considered tolerating PO, pain resolved with morphine, CT scan and labs reassuring can be managed at home Lab Data MDM Lab Attestation statement: I reviewed the patient's lab results. 07/08/23 04:36 07/08/23 04:36 Labs: Lab Results 07/08/23 07/08/23 07/08/23 Range/Units 04:36 04:36 Unknown WBC 7.8 (4.8-10.8) X10*3/uL RBC 4.64 (4.20-5.50) X10*6/uL Hgb 13.4 (12.0-16.0) g/dl Hct 39.6 (37.0-47.0) % MCV 85.3 (80.0-98.0) fL MCH 28.9 (27.0-33.0) pg MCHC 33.8 (31.0-35.0) g/dl RDW 11.9 (11.0-16.0) % Plt Count 241 D (160-400) X10*3/uL MPV 10.1 (9.4-12.3) fL Immature Gran % (Auto) 0.6 H (0.0-0.4) % Neut % (Auto) 67.0 (45-73) % Lymph % (Auto) 25.5 (20-40) % [place] % (Auto) 5.6 (2-11) % Eos % (Auto) 0.9 (0-4) % Baso % (Auto) 0.4 (0-2) % Lymph # (Auto) 2.0 (1.2-4.9) X10*3/uL [place] # (Auto) 0.4 (0.1-1.2) X10*3/uL Eos # (Auto) 0.1 (0.0-0.4) X10*3/uL Baso # (Auto) 0.0 (0.0-0.2) X10*3/uL Abs Immat Gran (auto) 0.05 H (0.00-0.03) X10*3/uL Absolute Neuts (auto) 5.2 (2.0-8.3) x10*3/uL Absolute Nucleated RBC 0.000 (0.0-0.012) X10*3/uL Nucleated RBC % (auto) 0.0 (0.0-0.2) /100WBC Sodium 138 (135-145) mmol/L Potassium 3.1 L (3.3-5.1) mmol/L Chloride 104 (96-108) mmol/L Carbon Dioxide 22 (22-29) mmol/L Anion Gap 15 (12-20) BUN 10 (9-16) mg/dL Creatinine 0.77 (0.5-1.4) mg/dL Estim Creat Clear Calc 99.3 Estimated GFR > 60 Random Glucose 127 H (60-115) mg/dL Calcium 9.8 (8.4-10.2) mg/dL Total Bilirubin 1.5 H (0.0-1.0) mg/dL Direct Bilirubin 0.4 (0.0-0.5) mg/dL AST 15 (5-31) U/L ALT 11 (0-31) U/L Alkaline Phosphatase 62 (39-117) U/L Total Protein 7.7 (6.5-8.0) g/dL Albumin 4.3 (3.5-5.0) g/dL Lipase 18 (8-78) U/L Urine Color Yellow Urine Appearance Turbid Urine pH 8.5 (5.0-9.0) Ur Specific [place] 1.020 (1.005-1.025) Urine Protein Negative (Neg-Trace) mg/dL Urine Glucose (UA) Negative (Negative) mg/dL Urine Ketones 40 (Negative) mg/dL Urine Blood Negative (Negative) Urine Nitrite Negative (Negative) Ur Leukocyte Esterase Negative (Negative) Urine Test (NEGATIVE) 07/08/23 Range/Units Unknown WBC (4.8-10.8) X10*3/uL RBC (4.20-5.50) X10*6/uL Hgb (12.0-16.0) g/dl Hct (37.0-47.0) % MCV (80.0-98.0) fL MCH (27.0-33.0) pg MCHC (31.0-35.0) g/dl RDW (11.0-16.0) % Plt Count (160-400) X10*3/uL MPV (9.4-12.3) fL Immature Gran % (Auto) (0.0-0.4) % Neut % (Auto) (45-73) % Lymph % (Auto) (20-40) % [place] % (Auto) (2-11) % Eos % (Auto) (0-4) % Baso % (Auto) (0-2) % Lymph # (Auto) (1.2-4.9) X10*3/uL [place] # (Auto) (0.1-1.2) X10*3/uL Eos # (Auto) (0.0-0.4) X10*3/uL Baso # (Auto) (0.0-0.2) X10*3/uL Abs Immat Gran (auto) (0.00-0.03) X10*3/uL Absolute Neuts (auto) (2.0-8.3) x10*3/uL Absolute Nucleated RBC (0.0-0.012) X10*3/uL Nucleated RBC % (auto) (0.0-0.2) /100WBC Sodium (135-145) mmol/L Potassium (3.3-5.1) mmol/L Chloride (96-108) mmol/L Carbon Dioxide (22-29) mmol/L Anion Gap (12-20) BUN (9-16) mg/dL Creatinine (0.5-1.4) mg/dL Estim Creat Clear Calc Estimated GFR Random Glucose (60-115) mg/dL Calcium (8.4-10.2) mg/dL Total Bilirubin (0.0-1.0) mg/dL Direct Bilirubin (0.0-0.5) mg/dL AST (5-31) U/L ALT (0-31) U/L Alkaline Phosphatase (39-117) U/L Total Protein (6.5-8.0) g/dL Albumin (3.5-5.0) g/dL Lipase (8-78) U/L Urine Color Urine Appearance Urine pH (5.0-9.0) Ur Specific [place] (1.005-1.025) Urine Protein (Neg-Trace) mg/dL Urine Glucose (UA) (Negative) mg/dL Urine Ketones (Negative) mg/dL Urine Blood (Negative) Urine Nitrite (Negative) Ur Leukocyte Esterase (Negative) Urine Test NEGATIVE (NEGATIVE) Independent Interpretation I performed an independent interpretation of an: CT Scan (no abscess or per foration) Radiology Impression Discussion of test interpretation with radiology: I have reviewed the radiologist's reading. Independent Historian Clinical information obtained from an independent historian. History obtained from or confirmed by: Spouse External Record Review External record reviewed: Inpatient record Prescription Management I considered prescription management with: Other (pepcid and zofran) Medications Administered Discontinued Medications Generic Name Dose Route Start Last Admin Trade Name Freq PRN Reason Stop Dose Admin Lactated Ringer's 1,000 mls @ 999 mls/hr 07/08/23 07:15 07/08/23 07:25 Lr IV 07/08/23 08:15 999 mls/hr .Q1H1M FABY Administration Iohexol 85 ml 07/08/23 08:24 07/08/23 08:24 Iohexol 350 Mg/Ml 100 Ml Infus..Btl IV 07/08/23 08:25 85 ml ONCE ONE Administration Morphine Sulfate 4 mg 07/08/23 07:13 07/08/23 07:26 Morphine Sulfate 4 Mg/Ml Cartridge IVPUSH 07/08/23 07:14 4 mg ONCE ONE Administration Protocol Ondansetron HCl 4 mg 07/08/23 07:13 07/08/23 07:26 Ondansetron Hcl 4 Mg/2 Ml Vial IVPUSH 07/08/23 07:14 4 mg ONCE ONE Administration Potassium Chloride 40 meq 07/08/23 07:24 07/08/23 09:09 Potassium Chloride Packet 20 Meq Packet PO 07/08/23 07:25 40 meq ONCE ONE Administration Discharge Plan Discharge Clinical Impression: Acute hypokalemia Gastritis Qualifiers: Gastritis type: unspecified gastritis Chronicity: acute Gastritis bleeding: without bleeding Qualified Code(s): K29.00 - Acute gastritis without bleeding Abdominal pain Qualifiers: Abdominal location: epigastric Qualified Code(s): R10.13 - Epigastric pain Patient Disposition: Home, Self-Care Instructions: Gastritis (ED), Hypokalemia (ED), Abdominal Pain (ED) Additional Instructions: bland diet for 48 hours no spicy, greasy or fatty foods then advance slowly. take pepcid twice a day for 1 week then daily for 1 week then as needed for symptoms avoid motrin return for fevers, vomiting, bloody stools, worsening pain - you might have a black stool after pepto bismol Prescriptions: New ondansetron 4 mg tablet,disintegrating 4 mg PO Q8H PRN (Reason: nausea and vomiting) Qty: 20 0RF famotidine [Pepcid] 20 mg tablet 20 mg PO BID Qty: 60 0RF Rx Instructions: please follow discharge instructions No Action hydrocodone-acetaminophen 5-325 mg tablet 1 tab PO Q4-6H PRN (Reason: pain) Qty: 30 0RF Rx Instructions: Partial Fill upon patient request.
[2023-07-08 07:06] VITALS: BP 137/68; PULSE 98; TEMP 36.8; O2SAT 100
[2023-07-08] MEDS: Lactated Ringers 1,000 ML 999 ML IV (07:25)
[2023-07-08] MEDS: Morphine Sulfate 4 MG/ML CARTRIDGE IVPUSH (07:26)
[2023-07-08] MEDS: ondansetron HCL 4 MG/2 ML VIAL IVPUSH (07:26)
[2023-07-08 07:28] VITALS: BP 123/71; PULSE 109; RESP 18; O2SAT 98
[2023-07-08 08:07] LABS: UPreg QC Valid YES; Urine Pregnancy NEGATIVE (NEGATIVE)
[2023-07-08 08:14] VITALS: BP 122/71; PULSE 88; RESP 19; O2SAT 97
[2023-07-08] MEDS: iohexoL 350 MG/ML 100 ML INFUS..BTL 85 ML IV (08:24)
[2023-07-08] MEDS: Potassium Chloride Packet 20 MEQ PACKET 40 MEQ PO (09:09)
[2023-07-08 09:32] VITALS: BP 122/68; PULSE 79; RESP 18; O2SAT 98
== END 2023-07-08 09:33 | disposition home or self-care (01) ==
PROVIDERS: Emergency Provider Emergency Medicine; PCP Registered Nurse
DX: E87.6 Hypokalemia (principal); K29.00 Acute gastritis without bleeding; R10.13 Epigastric pain; R11.2 Nausea with vomiting, unspecified; Z79.899 Other long term (current) drug therapy
CPT/HCPCS: 36415; 74177; 80048; 80076; 81003; 81025; 83690; 85025; 96374; 96375; 99285; J2270; J2405; Q9967

== ENCOUNTER 2023-10-14 12:10 | Outpatient (REF) | payer MEDICAID, SELFPAY ==
[2023-10-14 13:44] LABS: Cholesterol 133 mg/dL (<200); HDL Cholesterol 41 mg/dL (>40); LDL Cholesterol Calculated 73 mg/dL (<100); Triglycerides 97 mg/dL (<150)
== END 2023-10-14 12:11 | disposition home or self-care (01) ==
LOC: HO.HHCL 12:10
PROVIDERS: Visit Provider Registered Nurse
DX: Z00.00 Encounter for general adult medical examination without abnormal findings (principal)
CPT/HCPCS: 36415; 80061

== ENCOUNTER 2023-11-18 00:31 | Emergency (ER) | payer MEDICAID, SELFPAY ==
[2023-11-18 01:08] VITALS: BP 122/82; PULSE 69; RESP 16; TEMP 36.3; O2SAT 97; BMI 27.6
--- NOTE | 2023-11-18 01:19 | ECG_ITS ---
Test Reason : BACK PAIN Blood Pressure : / mmHG Vent. Rate : 066 BPM Atrial Rate : 066 BPM P-R Int : 140 ms QRS Dur : 072 ms QT Int : 408 ms P-R-T Axes : 082 078 073 degrees QTc Int : 427 ms Normal sinus rhythm Low voltage QRS Borderline ECG When compared with ECG of 08-MAR-2023 10:58, No significant change was found Referred By: Generic ED Physician Electronically Signed By:FABIAN LUCIO
[2023-11-18 01:37] LABS: MANUAL DIFF FLAG NO
[2023-11-18 01:39] LABS: Basophils Percent Auto 0.6 % (0-2); Eosinophils Absolute Auto 0.3 X10*3/uL (0.0-0.4); Eosinophils Percent Auto 3.5 % (0-4); Hematocrit 37.6 % (37.0-47.0); Hemoglobin 12.5 g/dl (12.0-16.0); Imm Gran Abs Auto 0.03 X10*3/uL (0.00-0.03); Imm Gran Pct Auto 0.4 % (0.0-0.4); Lymphocytes Absolute Auto 3.1 X10*3/uL (1.2-4.9); Lymphocytes Percent Auto 43.3 % (20-40); Mean Corpuscular HGB Conc 33.2 g/dl (31.0-35.0); Mean Corpuscular Hemoglobin 28.6 pg (27.0-33.0); Mean Platelet Volume 10.4 fL (9.4-12.3); Monocytes Absolute Auto 0.4 X10*3/uL (0.1-1.2); Neutrophils Absolute Auto 3.3 x10*3/uL (2.0-8.3); Neutrophils Percent Auto 46.2 % (45-73); Platelet Count 219 X10*3/uL (160-400); Red Blood Count 4.37 X10*6/uL (4.20-5.50); Red Cell Distribution Width 11.9 % (11.0-16.0); White Blood Count 7.2 X10*3/uL (4.8-10.8)
[2023-11-18 01:54] LABS: Alanine Aminotransferase 9 U/L (0-31); Albumin Level 4.1 g/dL (3.5-5.0); Alkaline Phosphatase 66 U/L (39-117); Anion Gap 11 (12-20); Aspartate Amino Transferase 13 U/L (5-31); Bilirubin Total 0.6 mg/dL (0.0-1.0); Blood Urea Nitrogen 10 mg/dL (9-16); Calcium 9.4 mg/dL (8.4-10.2); Carbon Dioxide 24 mmol/L (22-29); Chloride 108 mmol/L (96-108); Creatinine Clr Calc Pharmacy 119.2; Estimated Glomerular Filt Rate > 60; Glucose Random 95 mg/dL (60-115); Lipase 27 U/L (8-78); Potassium 3.8 mmol/L (3.3-5.1); Sodium 139 mmol/L (135-145)
[2023-11-18 02:45] LABS: Troponin-I High Sensitivity < 2.7 ng/L (<3.5-17.0)
== END 2023-11-18 07:45 | disposition left against medical advice (07) ==
PROVIDERS: Emergency Provider Emergency Medicine
DX: M54.9 Dorsalgia, unspecified (principal)
CPT/HCPCS: 36415; 80053; 83690; 84484; 85025; 93005; 99283

== ENCOUNTER → 2023-11-18 01:19 | Outpatient (BNV) | payer MEDICAID, SELFPAY | PROVIDERS: Emergency Provider Emergency Medicine; Visit Provider Internal Medicine | DX: M54.9 Dorsalgia, unspecified (principal); R94.31 Abnormal electrocardiogram [ECG] [EKG] | CPT/HCPCS: 93010 ==

== ENCOUNTER 2023-12-11 06:48 | Emergency (ER) | payer MEDICAID, SELFPAY ==
[2023-12-11 07:04] VITALS: BP 114/60; PULSE 73; RESP 16; TEMP 36.4; O2SAT 98; BMI 27.4
[2023-12-11 07:56] VITALS: BP 102/63; PULSE 75; RESP 18; O2SAT 98
--- NOTE | 2023-12-11 08:03 | ECG_ITS ---
Test Reason : Abd Pain Blood Pressure : / mmHG Vent. Rate : 073 BPM Atrial Rate : 073 BPM P-R Int : 138 ms QRS Dur : 070 ms QT Int : 378 ms P-R-T Axes : 065 071 100 degrees QTc Int : 416 ms Normal sinus rhythm Low voltage QRS Nonspecific T wave abnormality Abnormal ECG When compared with ECG of 18-NOV-2023 01:26, No significant change was found Referred By: Cara Meyer Electronically Signed By:FABIAN LUCIO
--- NOTE | 2023-12-11 08:06 | ED_ITS ---
HPI - Abdominal Pain General Chief Complaint: Abdominal Pain Stated Complaint: back and stomach pain Time Seen by Provider: 12/11/23 07:34 Source: patient Mode of arrival: ambulatory Limitations: no limitations History of Present Illness HPI narrative: 23 yo female PMH of GERD, s/p appendectomy woke up in the middle of the night with entire burning back pain and epigastric pain with some mild nausea and burning into the chest. She denies back trauma, IVDA, numbness or weakness. She notes she tried tylenol, tums, pepcid but no relief. She doesn't think she had a fever. No activities to cause pain. No urinary symptoms. Has had GERD before. MD elicited complaint: abdominal pain (back pain) Pertinent past history: none Onset (ago): hour(s) (several) Pain Consistency: constant Location: epigastric Severity: moderate Quality: burning Radiation: epigastric and chest Migration to: no migration Exacerbating factors: nothing Relieving factors: other (antacid) Context: history of similar episodes Associated symptoms: nausea Treatments prior to arrival: antacids Related Data Previous Rx's Medication Instructions Recorded hydrocodone 5 mg-acetaminophen 325 1 tab PO Q4-6H PRN pain #30 tabs 06/21/23 mg tablet famotidine 20 mg tablet (Pepcid) 20 mg PO BID #60 tabs 07/08/23 ondansetron 4 mg disintegrating 4 mg PO Q8H PRN nausea and 07/08/23 tablet vomiting #20 tabs omeprazole 20 mg capsule,delayed 20 mg PO DAILY #14 caps 12/11/23 release ondansetron 4 mg disintegrating 4 mg PO Q8H PRN nausea and 12/11/23 tablet vomiting #20 tabs Allergies Allergy/AdvReac Type Severity Reaction Status Date / Time ibuprofen [From MOTRIN] Allergy Unknown SHORTNESS Verified 11/18/23 01:07 OF BREATH, ANXIETY Review of Systems Review of Systems Constitutional : No Weight loss, No Fever, No Chills, ENT/Mouth : No Hearing loss, No Ear Pain, No Nasal Congestion, No Sinus Pain, No Hoarseness, No sore throat, No Rhinorrhea, No Swallowing Difficulty Cardiovascular : pos Chest Pain, No SOB Respiratory : No Cough, No Dyspnea Gastrointestinal : No Nausea, No Vomiting, No Diarrhea, pos abdominal Pain, No Hematochezia, No Melena Genitourinary : No Dysuria, No Urinary Frequency, No Hematuria, No Urinary Incontinence, Musculoskeletal : positive back pain Skin : No Skin Lesions, No rash Neuro : No Weakness, No Numbness, No Paresthesias, no loss of bowel or bladder incontinence, no saddle anesthesia All other systems reviewed and are negative [facility] Past Medical History Source: old records reviewed Onset Date is defined in the Problem List Problems that require an onset date and time if occurred within 24 hrs of arrival to the ED Aortic Dissection and Rupture; Neurologic impairment; Cardiopulmonary Arrest; Endotracheal Intubation; Insertion or Replacement of Mechanical Circulatory Assist Device Surgical History History of appendectomy (06/21/23) Social History Social History Household Members: Significant Other and Family Housing: House Do you presently have visiting nurse or other home services: No Alcohol intake: never Patient Tobacco Use Status: Never used Tobacco Smoked in Last 30 Days: No Use of substances other than those prescribed or required for medical reasons: No Advance Directives: No Advance Directives Information Provided: Yes service: No Physical Exam ED Vital Signs: Vital Signs - 24 hr 12/11/23 07:04 12/11/23 07:56 Temperature 97.6 F Pulse Rate 73 75 Respiratory Rate 16 18 Blood Pressure 114/60 102/63 Pulse Oximetry 98 98 Oxygen Delivery Method Room Air Room Air BMI result Body Mass Index 27.4 Appearance: Alert. Oriented X3. No acute distress. Eyes: Pupils equal, round and reactive to light. ENT: Pharynx normal. Neck: Normal inspection. Neck supple. CVS: Normal heart rate and rhythm. Pulses normal. Respiratory: No respiratory distress. Breath sounds normal. Abdomen: Soft and mild epigastric ttp no rebound neg lanids's sign Back: mild ttp along paraspinals Skin: Skin warm and dry. Normal skin color. Normal skin turgor. Extremities: No lower extremity edema. No calf ttp Neuro: Oriented X 3. No motor deficit. No sensory deficit. Medical Decision Making Medical Decision Making MDM Narrative: 23 yo female with PMH of GERD here with nontraumatic back pain and no cauda equina symptoms no IVDA at this time possible strain vs viral syndrome, her abdominal exam is benign she has neg murphys sign. Her pain was referred from epigastric area - will obtain basic labs and order GI consult along with viral panel and UA. She has no urinary symptoms and pain is up and down the spine so renal colic seems less likely. Differential Diagnosis Differential Diagnoses: The differential diagnosis associated with the presentation includes viral syndrome, gastritis Admission/Observation Consideration of admission/observation: Escalation of care including admission/observation considered negative workup feels better stable for DC Lab Data MDM Lab Attestation statement: I reviewed the patient's lab results. 12/11/23 08:14 12/11/23 08:14 Labs: Lab Results 12/11/23 12/11/23 Range/Units 08:00 08:14 WBC 5.6 (4.8-10.8) X10*3/uL RBC 4.46 (4.20-5.50) X10*6/uL Hgb 12.8 (12.0-16.0) g/dl Hct 38.0 (37.0-47.0) % MCV 85.2 (80.0-98.0) fL MCH 28.7 (27.0-33.0) pg MCHC 33.7 (31.0-35.0) g/dl RDW 11.9 (11.0-16.0) % Plt Count 201 (160-400) X10*3/uL MPV 10.2 (9.4-12.3) fL Immature Gran % (Auto) 0.4 (0.0-0.4) % Neut % (Auto) 52.9 (45-73) % Lymph % (Auto) 35.4 (20-40) % [place] % (Auto) 6.1 (2-11) % Eos % (Auto) 4.5 H (0-4) % Baso % (Auto) 0.7 (0-2) % Lymph # (Auto) 2.0 (1.2-4.9) X10*3/uL [place] # (Auto) 0.3 (0.1-1.2) X10*3/uL Eos # (Auto) 0.3 (0.0-0.4) X10*3/uL Baso # (Auto) 0.0 (0.0-0.2) X10*3/uL Abs Immat Gran (auto) 0.02 (0.00-0.03) X10*3/uL Absolute Neuts (auto) 3.0 (2.0-8.3) x10*3/uL Absolute Nucleated RBC 0.000 (0.0-0.012) X10*3/uL Nucleated RBC % (auto) 0.0 (0.0-0.2) /100WBC Sodium 138 (135-145) mmol/L Potassium 3.9 (3.3-5.1) mmol/L Chloride 107 (96-108) mmol/L Carbon Dioxide 26 (22-29) mmol/L Anion Gap 9 L (12-20) BUN 10 (9-16) mg/dL Creatinine 0.72 (0.5-1.4) mg/dL Estim Creat Clear Calc 107.3 Estimated GFR > 60 Random Glucose 88 (60-115) mg/dL Calcium 9.3 (8.4-10.2) mg/dL Magnesium 2.0 (1.6-2.6) mg/dL Total Bilirubin 0.7 (0.0-1.0) mg/dL Direct Bilirubin 0.2 (0.0-0.5) mg/dL AST 13 (5-31) U/L ALT 9 (0-31) U/L Alkaline Phosphatase 65 (39-117) U/L Total Protein 7.1 (6.5-8.0) g/dL Albumin 4.0 (3.5-5.0) g/dL Lipase 25 (8-78) U/L Beta HCG, Quant < 2 mIU/mL Urine Color Yellow Urine Appearance Clear Urine pH 5.5 (5.0-9.0) Ur Specific [place] 1.020 (1.005-1.025) Urine Protein Negative (Neg-Trace) mg/dL Urine Glucose (UA) Negative (Negative) mg/dL Urine Ketones Negative (Negative) mg/dL Urine Blood Negative (Negative) Urine Nitrite Negative (Negative) Ur Leukocyte Esterase Negative (Negative) COVID-19 (JUNIOR) Negative (Negative) COVID-19 Clin Com See Note Influenza Type A (ASIA) Negative (Negative) Influenza Type B (ASIA) Negative (Negative) Influenza A & B Note See Note Independent Interpretation I performed an independent interpretation of an: EKG Interpretation: Rate: 73 Rhythm: NSR [place]: normal Normal P waves. Normal CATA. Normal QRS complex. ST T wave : nonspecific ant t wave changes, no BART qTC: 416 prior studies: no acute ischemia The study has been interpreted contemporaneously by me. . Independent Historian Clinical information obtained from an independent historian. History obtained from or confirmed by: Spouse External Record Review External record reviewed: Inpatient record Medications Administered Discontinued Medications Generic Name Dose Route Start Last Admin Trade Name Freq PRN Reason Stop Dose Admin Al Hydroxide/Mg Hydroxide 15 ml 12/11/23 08:03 12/11/23 08:22 Magnesium Hydrox/Alum Hydrox 30 Ml Oral.Susp PO 12/11/23 08:04 15 ml ONCE ONE Administration Cyclobenzaprine HCl 10 mg 12/11/23 08:03 12/11/23 08:21 Cyclobenzaprine Hcl 10 Mg Tablet PO 12/11/23 08:04 10 mg ONCE ONE Administration Lidocaine HCl 15 ml 12/11/23 08:03 12/11/23 08:22 Lidocaine Hcl Viscous 2 % 15 Ml Solution MUCOUS MEM 12/11/23 08:04 15 ml ONCE ONE Administration Discharge Plan Discharge Clinical Impression: Back pain Qualifiers: Back pain location: back pain in other location Chronicity: acute Qualified Code(s): M54.9 - Dorsalgia, unspecified Gastritis Qualifiers: Gastritis type: unspecified gastritis Chronicity: acute Gastritis bleeding: w ithout bleeding Qualified Code(s): K29.00 - Acute gastritis without bleeding Patient Disposition: Home, Self-Care Instructions: Gastritis (ED), Back Pain (ED) Additional Instructions: labs reassuring, swabs negative for covid at this time please return for worsening pain, fevers, vomiting, inability to eat or drink. eat a bland diet today and advance over 48 hours as tolerated take omeprazole for 2 weeks to see if symptoms improve please follow up with your doctor. can switch back to pepcid after 2 week trial of omeprazole hold pepcid while on omeprazole Prescriptions: New ondansetron 4 mg tablet,disintegrating 4 mg PO Q8H PRN (Reason: nausea and vomiting) Qty: 20 0RF omeprazole 20 mg capsule,delayed release(DR/EC) 20 mg PO DAILY Qty: 14 0RF No Action hydrocodone-acetaminophen 5-325 mg tablet 1 tab PO Q4-6H PRN (Reason: pain) Qty: 30 0RF Rx Instructions: Partial Fill upon patient request. ondansetron 4 mg tablet,disintegrating 4 mg PO Q8H PRN (Reason: nausea and vomiting) Qty: 20 0RF famotidine [Pepcid] 20 mg tablet 20 mg PO BID Qty: 60 0RF Rx Instructions: please follow discharge instructions Stand Alone Forms: Work/School Release Interventions: ED Discharge Assessment Last Done: 12/11/23 09:57 Discharge Date/Time: 12/11/23 09:57
[2023-12-11 08:20] LABS: MANUAL DIFF FLAG NO
[2023-12-11] MEDS: Cyclobenzaprine HCl 10 MG TABLET PO (08:21)
[2023-12-11] MEDS: Lidocaine HCl Viscous 2 % 15 ML SOLUTION MUCOUS MEM (08:22)
[2023-12-11] MEDS: Magnesium Hydrox/Alum Hydrox 30 ML ORAL.SUSP 15 ML PO (08:22)
[2023-12-11 08:23] LABS: Appearance Urine Clear; Color Urine Yellow; Glucose Urine UA Negative (Negative); Leukocyte Esterase Urine Negative (Negative); Nitrite Urine Negative (Negative); PH 5.5 (5.0-9.0); Urine Blood Negative (Negative); Urine Ketones Negative (Negative); Urine Protein Negative (Neg-Trace)
[2023-12-11 08:23] LABS: Basophils Percent Auto 0.7 % (0-2); Eosinophils Absolute Auto 0.3 X10*3/uL (0.0-0.4); Eosinophils Percent Auto 4.5 % (0-4); Hemoglobin 12.8 g/dl (12.0-16.0); Imm Gran Abs Auto 0.02 X10*3/uL (0.00-0.03); Imm Gran Pct Auto 0.4 % (0.0-0.4); Lymphocytes Percent Auto 35.4 % (20-40); Mean Corpuscular HGB Conc 33.7 g/dl (31.0-35.0); Mean Corpuscular Hemoglobin 28.7 pg (27.0-33.0); Mean Corpuscular Volume 85.2 fL (80.0-98.0); Mean Platelet Volume 10.2 fL (9.4-12.3); Monocytes Absolute Auto 0.3 X10*3/uL (0.1-1.2); Monocytes Percent Auto 6.1 % (2-11); Neutrophils Percent Auto 52.9 % (45-73); Platelet Count 201 X10*3/uL (160-400); Red Blood Count 4.46 X10*6/uL (4.20-5.50); Red Cell Distribution Width 11.9 % (11.0-16.0); White Blood Count 5.6 X10*3/uL (4.8-10.8)
[2023-12-11 08:40] LABS: IDNOW Serial# 152EDE1D; Influenza A Negative (Negative); Influenza B2 Negative (Negative)
[2023-12-11 08:41] LABS: COVID-19 Test Negative (Negative); IDNOW Serial# 08D9AD1C
[2023-12-11 08:45] LABS: Alanine Aminotransferase 9 U/L (0-31); Alkaline Phosphatase 65 U/L (39-117); Anion Gap 9 (12-20); Aspartate Amino Transferase 13 U/L (5-31); Bilirubin Direct 0.2 mg/dL (0.0-0.5); Bilirubin Total 0.7 mg/dL (0.0-1.0); Blood Urea Nitrogen 10 mg/dL (9-16); Calcium 9.3 mg/dL (8.4-10.2); Carbon Dioxide 26 mmol/L (22-29); Chloride 107 mmol/L (96-108); Creatinine Clr Calc Pharmacy 107.3; Estimated Glomerular Filt Rate > 60; Glucose Random 88 mg/dL (60-115); HCG Quantitative < 2 mIU/mL; Lipase 25 U/L (8-78); Potassium 3.9 mmol/L (3.3-5.1); Sodium 138 mmol/L (135-145); Total Protein 7.1 g/dL (6.5-8.0)
--- NOTE | 2023-12-11 08:52 | PC.NURSE ---
pt alert and oriented. reports that she woke up this morning at 0400 with back pain, abd pain that radiated to her chest. medicated per jan. labs done, ekg done.
== END 2023-12-11 09:57 | disposition home or self-care (01) ==
PROVIDERS: Emergency Provider Emergency Medicine
DX: K29.00 Acute gastritis without bleeding (principal); M54.9 Dorsalgia, unspecified; Z11.52 Encounter for screening for COVID-19
CPT/HCPCS: 36415; 80048; 80076; 81003; 83690; 83735; 84702; 85025; 87502; 87635; 93005; 99283; 99285

== ENCOUNTER → 2023-12-11 08:03 | Outpatient (BNV) | payer MEDICAID, SELFPAY | PROVIDERS: Emergency Provider Emergency Medicine; Visit Provider Internal Medicine | DX: R10.9 Unspecified abdominal pain (principal) | CPT/HCPCS: 93010 ==

== ENCOUNTER 2023-12-12 00:33 | Emergency (ER) | payer MEDICAID, SELFPAY ==
[2023-12-12 00:46] VITALS: BP 145/78; PULSE 135; RESP 20; TEMP 36.6; O2SAT 98; BMI 27.5
[2023-12-12] MEDS: Acetaminophen 325 MG TABLET 650 MG PO (00:50)
--- NOTE | 2023-12-12 01:33 | ED_ITS ---
HPI - Abdominal Pain General Chief Complaint: Abdominal Pain Stated Complaint: back & abd pain Time Seen by Provider: 12/12/23 01:32 Source: patient Mode of arrival: ambulatory Limitations: no limitations History of Present Illness HPI narrative: Patient complaining of epigastric pain since yesterday was seen here earlier blood workup negative patient is similar pain last month pain is sharp/burning in epigastric area radiating to the back gets worse after eating any food no history of gallstones patient had CT scan done in 07/15 that time patient appendicitis status post appendectomy no gallstones seen in the CT scan Related Data Previous Rx's Medication Instructions Recorded hydrocodone 5 mg-acetaminophen 325 1 tab PO Q4-6H PRN pain #30 tabs 06/21/23 mg tablet famotidine 20 mg tablet (Pepcid) 20 mg PO BID #60 tabs 07/08/23 ondansetron 4 mg disintegrating 4 mg PO Q8H PRN nausea and 07/08/23 tablet vomiting #20 tabs omeprazole 20 mg capsule,delayed 20 mg PO DAILY #14 caps 12/11/23 release ondansetron 4 mg disintegrating 4 mg PO Q8H PRN nausea and 12/11/23 tablet vomiting #20 tabs sucralfate 1 gram tablet 1 g PO BID #60 tabs 12/12/23 Allergies Allergy/AdvReac Type Severity Reaction Status Date / Time ibuprofen [From MOTRIN] Allergy Unknown SHORTNESS Verified 11/18/23 01:07 OF BREATH, ANXIETY Review of Systems Review of Systems Yes all other systems are reviewed and are negative PMFSH Past Medical History Onset Date is defined in the Problem List Problems that require an onset date and time if occurred within 24 hrs of arrival to the ED Aortic Dissection and Rupture; Neurologic impairment; Cardiopulmonary Arrest; Endotracheal Intubation; Insertion or Replacement of Mechanical Circulatory Assist Device Surgical History History of appendectomy (06/21/23) Social History Social History Household Members: Significant Other and Family Housing: House Do you presently have visiting nurse or other home services: No Alcohol intake: never Patient Tobacco Use Status: Never used Tobacco Smoked in Last 30 Days: No Use of substances other than those prescribed or required for medical reasons: No Advance Directives: No Advance Directives Information Provided: Yes Patient : No service: No Physical Exam ED Vital Signs: Vital Signs - 24 hr 12/12/23 00:46 12/12/23 03:26 Temperature 97.8 F Pulse Rate 135 H 79 Respiratory Rate 20 14 Blood Pressure 145/78 H 127/77 Pulse Oximetry 98 99 Oxygen Delivery Method Room Air Room Air BMI result Body Mass Index 27.5 Appearance: Alert. Oriented X3. No acute distress. Eyes: No pallor or icterus ENT: Pharynx normal. Oral Mucosa moist Neck: Normal inspection. Neck supple. CVS: Normal heart rate and rhythm. Pulses normal. Respiratory: No respiratory distress. Equal air entry bilateral, no wheezing/rales/rhonchi Abdomen: Soft , tender in epigastric area no right upper quadrant tenderness Knapp sign negative Bowel sounds are present, no mass palpable, no CVA tenderness Skin: Skin warm and dry. Normal skin color. Normal skin turgor. Extremities: No lower extremity edema. No calf tenderness Neuro: Oriented X 3. No motor deficit. Medical Decision Making Medical Decision Making [facility] Narrative: Patient with gastritis symptoms previous CT scan negative for gallstones labs are stable patient felt better after Maalox discharge patient home on sucralfate advised to continue Prilosec Differential Diagnosis Differential Diagnoses: The differential diagnosis associated with the presentation includes Acute gastritis/pancreatitis/gallstone External Record Review External record reviewed: Inpatient record Medications Administered Discontinued Medications Generic Name Dose Route Start Last Admin Trade Name Freq PRN Reason Stop Dose Admin Acetaminophen 650 mg 12/12/23 00:41 12/12/23 00:50 Acetaminophen 325 Mg Tablet PO 12/12/23 00:42 650 mg ONCE ONE Administration Al Hydroxide/Mg Hydroxide 30 ml 12/12/23 01:56 12/12/23 02:28 Magnesium Hydrox/Alum Hydrox 30 Ml Oral.Susp PO 12/12/23 01:57 30 ml ONCE ONE Administration Lidocaine HCl 15 ml 12/12/23 01:56 12/12/23 02:28 Lidocaine Hcl Viscous 2 % 15 Ml Solution MUCOUS MEM 12/12/23 01:57 15 ml ONCE ONE Administration Discharge Plan Discharge Clinical Impression: Acute gastritis Patient Disposition: Home, Self-Care Instructions: Gastritis (ED) Additional Instructions: Avoid fried/greasy food Continue take your Prilosec daily as prescribed and follow-up with your PCP Take tablets sucralfate 1 tablet twice daily before meals as needed Prescriptions: New sucralfate 1 gram tablet 1 g PO BID Qty: 60 0RF No Action hydrocodone-acetaminophen 5-325 mg tablet 1 tab PO Q4-6H PRN (Reason: pain) Qty: 30 0RF Rx Instructions: Partial Fill upon patient request. ondansetron 4 mg tablet,disintegrating 4 mg PO Q8H PRN (Reason: nausea and vomiting) Qty: 20 0RF famotidine [Pepcid] 20 mg tablet 20 mg PO BID Qty: 60 0RF Rx Instructions: please follow discharge instructions ondansetron 4 mg tablet,disintegrating 4 mg PO Q8H PRN (Reason: nausea and vomiting) Qty: 20 0RF omeprazole 20 mg capsule,delayed release(DR/EC) 20 mg PO DAILY Qty: 14 0RF Interventions: ED Discharge Assessment Last Done: 12/12/23 03:28 Discharge Date/Time: 12/12/23 03:29
[2023-12-12] MEDS: Lidocaine HCl Viscous 2 % 15 ML SOLUTION MUCOUS MEM (02:28)
[2023-12-12] MEDS: Magnesium Hydrox/Alum Hydrox 30 ML ORAL.SUSP PO (02:28)
[2023-12-12 03:26] VITALS: BP 127/77; PULSE 79; RESP 14; O2SAT 99
== END 2023-12-12 03:29 | disposition home or self-care (01) ==
PROVIDERS: Emergency Provider Internal Medicine
DX: K29.00 Acute gastritis without bleeding (principal); Z79.899 Other long term (current) drug therapy
CPT/HCPCS: 99283; 99284

== ENCOUNTER 2023-12-27 | Outpatient (REF) | payer MEDICAID, SELFPAY | END 2023-12-27 00:01 | disposition home or self-care (01) | LOC: HO.LNP | PROVIDERS: Visit Provider Internal Medicine | DX: R10.13 Epigastric pain (principal) | CPT/HCPCS: 87338 ==

== ENCOUNTER 2024-12-05 13:53 | Emergency (ER) | payer MEDICAID, SELFPAY ==
--- NOTE | 2024-12-05 14:30 | ED.GENADULT ---
HPI - General Adult General Chief complaint: Abdominal Pain Stated complaint: vomiting nausea Related Data Previous Rx's ?Medication ?Instructions ?Recorded hydrocodone 5 mg-acetaminophen 325 1 tab PO Q4-6H PRN pain #30 tabs 06/21/23 mg tablet famotidine 20 mg tablet (Pepcid) 20 mg PO BID #60 tabs 07/08/23 ondansetron 4 mg disintegrating 4 mg PO Q8H PRN nausea and 07/08/23 tablet vomiting #20 tabs omeprazole 20 mg capsule,delayed 20 mg PO DAILY #14 caps 12/11/23 release ondansetron 4 mg disintegrating 4 mg PO Q8H PRN nausea and 12/11/23 tablet vomiting #20 tabs sucralfate 1 gram tablet 1 g PO BID #60 tabs 12/12/23 Allergies Allergy/AdvReac Type Severity Reaction Status Date / Time ibuprofen [From MOTRIN] Allergy Unknown SHORTNESS Verified 12/05/24 14:34 OF BREATH, ANXIETY PMFSH Past Medical History Surgical History History of appendectomy (06/21/23) Social History Social History Household Members: Significant Other and Family Housing: House Do you presently have visiting nurse or other home services: No Alcohol intake: never Patient Tobacco Use Status: Never used Tobacco Advance Directives: No Advance Directives Information Provided: Yes Do you have a plan to hurt others: No Plan service: No Physical Exam ED Vital Signs: BMI result Body Mass Index 27.4 Course Course Course Narrative: This is a rapid medical exam performed by Alexis Jackson NP: Additional HPI, ROS, PE not included below will be deferred to primary provider. Patient is a 24-year-old female presenting to the ED with complaint of nausea, vomiting and diarrhea since this morning. Unable to tolerate PO. Chills. Plan: labs, viral serology Medical Decision Making Lab Data 12/05/24 15:07 12/05/24 15:07 Labs: Lab Results 12/05/24 Range/Units 15:07 WBC 12.4 H (4.8-10.8) X10*3/uL RBC 5.26 (4.20-5.50) X10*6/uL Hgb 15.4 D (12.0-16.0) g/dl Hct 44.4 (37.0-47.0) % MCV 84.4 (80.0-98.0) fL MCH 29.3 (27.0-33.0) pg MCHC 34.7 (31.0-35.0) g/dl RDW 12.3 (11.0-16.0) % Plt Count 243 (160-400) X10*3/uL MPV 10.4 (9.4-12.3) fL Immature Gran % (Auto) 0.4 (0.0-0.4) % Neut % (Auto) 90.2 H (45-73) % Lymph % (Auto) 4.7 L (20-40) % [place] % (Auto) 4.1 (2-11) % Eos % (Auto) 0.4 (0-4) % Baso % (Auto) 0.2 (0-2) % Lymph # (Auto) 0.6 L (1.2-4.9) X10*3/uL [place] # (Auto) 0.5 (0.1-1.2) X10*3/uL Eos # (Auto) 0.1 (0.0-0.4) X10*3/uL Baso # (Auto) 0.0 (0.0-0.2) X10*3/uL Abs Immat Gran (auto) 0.05 H (0.00-0.03) X10*3/uL Absolute Neuts (auto) 11.2 H (2.0-8.3) x10*3/uL Absolute Nucleated RBC 0.000 (0.0-0.012) X10*3/uL Nucleated RBC % (auto) 0.0 (0.0-0.2) /100WBC Smear Tech's Comments VERIFIED Sodium 140 (135-145) mmol/L Potassium 4.0 (3.3-5.1) mmol/L Chloride 107 (96-108) mmol/L Carbon Dioxide 23 (22-29) mmol/L Anion Gap 14 (12-20) BUN 13 (9-16) mg/dL Creatinine 0.67 (0.5-1.4) mg/dL Estim Creat Clear Calc 114.3 Estimated GFR > 60 Random Glucose 100 (60-115) mg/dL Calcium 9.6 (8.4-10.2) mg/dL Magnesium 1.7 (1.6-2.6) mg/dL Total Bilirubin 1.6 H (0.0-1.0) mg/dL AST 30 (5-31) U/L ALT 23 (0-31) U/L Alkaline Phosphatase 75 (39-117) U/L Total Protein 8.4 H (6.5-8.0) g/dL Albumin 4.7 (3.5-5.0) g/dL Beta HCG, Quant < 2 mIU/mL Influenza Type A (PCR) NEGATIVE (Negative) Influenza Type B (PCR) NEGATIVE (Negative) RSV RNA Qual (PCR) NEGATIVE (Negative) SARS-CoV-2 RNA (RT-PCR) NEGATIVE (Negative) Discharge Plan Discharge Clinical Impression: Nausea, vomiting, and diarrhea Patient Disposition: Left W/O Completing Treatment Prescriptions: No Action hydrocodone-acetaminophen 5-325 mg tablet 1 tab PO Q4-6H PRN (Reason: pain) Qty: 30 0RF Rx Instructions: Partial Fill upon patient request. ondansetron 4 mg tablet,disintegrating 4 mg PO Q8H PRN (Reason: nausea and vomiting) Qty: 20 0RF famotidine [Pepcid] 20 mg tablet 20 mg PO BID Qty: 60 0RF Rx Instructions: please follow discharge instructions sucralfate 1 gram tablet 1 g PO BID Qty: 60 0RF ondansetron 4 mg tablet,disintegrating 4 mg PO Q8H PRN (Reason: nausea and vomiting) Qty: 20 0RF omeprazole 20 mg capsule,delayed release(DR/EC) 20 mg PO DAILY Qty: 14 0RF Discharge Date/Time: 12/05/24 20:30
[2024-12-05 14:31] VITALS: BP 122/76; PULSE 117; RESP 16; TEMP 37.5; O2SAT 100; BMI 27.4
[2024-12-05 15:16] LABS: Basophils Percent Auto 0.2 % (0-2); Eosinophils Absolute Auto 0.1 X10*3/uL (0.0-0.4); Eosinophils Percent Auto 0.4 % (0-4); Hematocrit 44.4 % (37.0-47.0); Hemoglobin 15.4 g/dl (12.0-16.0); Imm Gran Abs Auto 0.05 X10*3/uL (0.00-0.03); Imm Gran Pct Auto 0.4 % (0.0-0.4); Lymphocytes Absolute Auto 0.6 X10*3/uL (1.2-4.9); Lymphocytes Percent Auto 4.7 % (20-40); MANUAL DIFF FLAG SCAN; Mean Corpuscular HGB Conc 34.7 g/dl (31.0-35.0); Mean Corpuscular Hemoglobin 29.3 pg (27.0-33.0); Mean Corpuscular Volume 84.4 fL (80.0-98.0); Mean Platelet Volume 10.4 fL (9.4-12.3); Monocytes Absolute Auto 0.5 X10*3/uL (0.1-1.2); Monocytes Percent Auto 4.1 % (2-11); Neutrophils Absolute Auto 11.2 x10*3/uL (2.0-8.3); Neutrophils Percent Auto 90.2 % (45-73); Platelet Count 243 X10*3/uL (160-400); Red Blood Count 5.26 X10*6/uL (4.20-5.50); Red Cell Distribution Width 12.3 % (11.0-16.0); SCAN SMEAR FLAG 1; White Blood Count 12.4 X10*3/uL (4.8-10.8)
[2024-12-05 15:46] LABS: Alanine Aminotransferase 23 U/L (0-31); Albumin Level 4.7 g/dL (3.5-5.0); Alkaline Phosphatase 75 U/L (39-117); Anion Gap 14 (12-20); Aspartate Amino Transferase 30 U/L (5-31); Bilirubin Total 1.6 mg/dL (0.0-1.0); Blood Urea Nitrogen 13 mg/dL (9-16); Calcium 9.6 mg/dL (8.4-10.2); Carbon Dioxide 23 mmol/L (22-29); Chloride 107 mmol/L (96-108); Creatinine Clr Calc Pharmacy 114.3; Estimated Glomerular Filt Rate > 60; Glucose Random 100 mg/dL (60-115); Magnesium 1.7 mg/dL (1.6-2.6); Sodium 140 mmol/L (135-145); Total Protein 8.4 g/dL (6.5-8.0)
[2024-12-05 16:01] LABS: Influenza A PCR NEGATIVE (Negative); Influenza B PCR NEGATIVE (Negative); Resp Syncy Virus RNA Qual PCR NEGATIVE (Negative); SARS COV2 PCR INHOUSE NEGATIVE (Negative)
[2024-12-05 16:05] LABS: HCG Quantitative < 2 mIU/mL
[2024-12-05 16:17] LABS: SLIDE REVIEW VERIFIED
== END 2024-12-05 20:30 | disposition left against medical advice (07) ==
PROVIDERS: Registered Nurse Emergency; Emergency Provider Emergency Medicine; PCP Registered Nurse
DX: R11.2 Nausea with vomiting, unspecified (principal); R19.7 Diarrhea, unspecified; Z03.818 Encounter for observation for suspected exposure to other biological agents ruled out
CPT/HCPCS: 0241U; 80053; 83735; 84702; 85025; 99281; 99283